=== PATIENT | male | born 1950 | race Caucasian/White ===

== ENCOUNTER 2023-03-13 11:06 | Outpatient (OUT) | payer MEDICARE, SELFPAY ==
--- NOTE | 2023-03-13 11:15 | ECG_ITS ---
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
--- NOTE | 2023-03-13 11:31 | XR_ITS ---
The [address] [address] Patient Name: FLY DORSEY MRN: [id number] date: 1950 Sex: M Assigned Patient Location: [facility] Current Patient Location: [facility] Accession/Order Number: [id number] Exam Date: 03/13/2023 12:10 Report Date: 03/13/2023 12:19 At the request of: CONNOR HARRISON Procedure: XR chest 2V EXAM: XR chest 2V HISTORY: Preop exam COMPARISON: None. TECHNIQUE: PA and lateral views of the chest. FINDINGS: The cardiomediastinal silhouette is normal. No focal consolidation is identified. There is no pneumothorax. No pleural effusion is noted. The osseous structures are intact. XR/XR chest 2V IMPRESSION: No acute cardiopulmonary process. Electronically authenticated by: RHONDA DECKER Date: 03/13/2023 12:19
--- NOTE | 2023-03-13 12:09 | P.GSHP_ITS ---
History of Present Illness History of Present Illness Chief complaint: elevated PSA, BPH Narrative: Patient presents for preadmission testing accompanied by his . The patient is deaf but communicates by sign language. The patient states he had an elevated PSA, Experiences nocturia, had an MRI done in February which demonstrated an area of concern on his prostate and he is now scheduled for biopsy. Patient denies dysuria, hematuria, fever, abdominal pain, or any other complaints. Review of Systems ROS Narrative REVIEW OF SYSTEMS: Negative except as stated in HPI, ten or more systems reviewed. Constitutional: No fever , chills, weakness ENT: No sore throat or epistaxis Cardiovascular: No edema, chest pain, palpitations, or activity intolerance Respiratory: No shortness of breath, cough, or wheezing Musculoskeletal: No joint pain or swelling Gastrointestinal: No abdominal pain, constipation, diarrhea, or vomiting Genitourinary: No dysuria or hematuria Neurological: No numbness, tingling, weakness, or headache Psychiatric: No mood changes PFSH [facility] Medical History (Updated 03/13/23 @ 11:42 by Melina Cameron NP) Edentulism ?K08.109 - Complete loss of teeth, unspecified cause, unspecified class (ICD- 10) Full dentures ?Z97.2 - Presence of dental prosthetic device (complete) (partial) (ICD-10) ?K08.109 - Complete loss of teeth, unspecified cause, unspecified class (ICD- 10) Varicose vein of leg ?I83.90 - Asymptomatic varicose veins of unspecified lower extremity (ICD-10) GERD (gastroesophageal reflux disease) ?K21.9 - Gastro-esophageal reflux disease without esophagitis (ICD-10) Myocardial infarction ?I21.9 - Acute myocardial infarction, unspecified (ICD-10) Prediabetes ?R73.03 - Prediabetes (ICD-10) Vertigo ?R42 - Dizziness and giddiness (ICD-10) Arthritis ?M19.90 - Unspecified osteoarthritis, unspecified site (ICD-10) Back pain ?M54.9 - Dorsalgia, unspecified (ICD-10) Diabetes ?E11.9 - Type 2 diabetes mellitus without complications (ICD-10) Atherosclerosis ?I70.90 - Unspecified atherosclerosis (ICD-10) Hernia ?K46.9 - Unspecified abdominal hernia without obstruction or gangrene (ICD- 10) Sleep apnea in adult ?G47.30 - Sleep apnea, unspecified (ICD-10) Hyperlipidemia ?E78.5 - Hyperlipidemia, unspecified (ICD-10) CAD (coronary artery disease) ?I25.10 - Atherosclerotic heart disease of [place] coronary artery without angina pectoris (ICD-10) BPH (benign prostatic hyperplasia) ?N40.0 - Benign prostatic hyperplasia without lower urinary tract symptoms (ICD-10) Elevated PSA ?R97.20 - Elevated prostate specific antigen [PSA] (ICD-10) Deaf ?H91.90 - Unspecified hearing loss, unspecified ear (ICD-10) Surgical History (Updated 03/13/23 @ 11:42 by Melina Cameron NP) History of tonsillectomy ?Z90.89 - Acquired absence of other organs (ICD-10) History of foot surgery ?Z98.890 - Other specified postprocedural states (ICD-10) H/O colectomy ?Z90.49 - Acquired absence of other specified parts of digestive tract (ICD- 10) History of colonoscopy ?Z98.890 - Other specified postprocedural states (ICD-10) H/O angioplasty ?Z98.62 - Peripheral vascular angioplasty status (ICD-10) Family History (Updated 03/13/23 @ 11:42 by Melina Cameron NP) Other Family history of diabetes mellitus Family history of lung cancer Family history of prostate cancer Social History (Updated 03/13/23 @ 11:33 by Melina Cameron NP) Within the past year, how often did you have a drink containing alcohol: monthly or less Smoking status: Former smoker Non-prescribed substance use: denies use Highest level of school completed/degree received: high school graduate Meds Home Medications and Allergies Home Medications Medication Instructions Recorded Confirmed Type hydrochlorothiazide 25 mg tablet 25 mg PO DAILY 03/13/23 03/13/23 History Allergies Allergy/AdvReac Type Severity Reaction Status Date / Time No Known Drug Allergies Allergy Verified 03/13/23 11:30 Exam Narrative Exam Narrative: Constitutional: Awake, alert, comfortable, well-appearing, nontoxic, interactive, vital signs as charted Head: Normocephalic, atraumatic Neck: Supple, normal appearance, normal range of motion, no meningeal signs, no lymphadenopathy Respiratory: No respiratory distress, breath sounds clear Cardiovascular: Regular rate and rhythm, strong and regular heart tones Abdomen: Nontender, Large hernia, normal bowel sounds, soft, no CVA tenderness Musculoskeletal: Normal gait, no swelling or edema Skin: No rashes or induration, no lesions, only visible skin inspected Neuro: No neurological deficits, normal sensation Psychiatric: Oriented ?3, normal affect Assessment and Plan Assessment and Plan (1) BPH (benign prostatic hyperplasia): (2) Elevated PSA: Plan MRI fusion prostate biopsy scheduled with Dr. Steel 03/18/2023.
[2023-03-13 12:15] LABS: Basophils Absolute Auto 0.1 10^3/uL (0.0-0.1); Eosinophils Absolute Auto 0.2 10^3/uL (0.0-0.7); Eosinophils Percent Auto 2.6 % (0.9-7.0); Hemoglobin 15.6 g/dL (14.0-18.0); Immature Granulocytes Abs Auto 0.02 10^3/uL (0.00-0.03); Immature Granulocytes Pct Auto 0.3 % (0.0-0.5); Lymphocytes Absolute Auto 1.7 10^3/uL (1.2-3.8); Lymphocytes Percent Auto 27.6 % (20.5-60.0); Mean Corpuscular HGB Conc 32.5 g/dL (29.9-35.2); Mean Corpuscular Volume 89.2 fL (80.0-94.0); Mean Platelet Volume 9.7 fL (9.5-13.5); Monocytes Absolute Auto 0.6 10^3/uL (0.3-0.8); Monocytes Percent Auto 9.5 % (1.7-12.0); Neutrophils Absolute Auto 3.6 10^3/uL (1.4-6.5); Platelet Count 218 10^3/uL (150-450); Red Blood Count 5.38 10^6/uL (4.70-6.10); White Blood Count 6.1 10^3/uL (4.0-11.0)
[2023-03-13 12:35] LABS: INR 0.93; Partial Thromboplastin Time 27.6 sec (22.3-36.2); Prothrombin Time 9.9 sec (9.0-11.6)
[2023-03-13 12:49] LABS: Anion Gap 9.7; BUN Creatinine Ratio 22.9; Calcium 9.5 mg/dL (8.5-10.1); Carbon Dioxide 32.1 mmol/L (21.0-32.0); Chloride 102 mmol/L (98-107); Estimated GFR (African America >60 (>=60); Estimated GFR (Non-African Ame >60 (>=60); Glucose 80 mg/dL (74-106); Potassium 3.8 mmol/L (3.5-5.1); Sodium 140 mmol/L (136-145)
== END 2023-03-13 11:07 | disposition home or self-care (01) ==
PROVIDERS: PCP Family Medicine; Visit Provider Urology
DX: Z01.810 Encounter for preprocedural cardiovascular examination (principal); Z01.812 Encounter for preprocedural laboratory examination; Z01.818 Encounter for other preprocedural examination; R97.20 Elevated prostate specific antigen [PSA]; N40.0 Benign prostatic hyperplasia without lower urinary tract symptoms
CPT/HCPCS: 71046; 80048; 85025; 85610; 85730; 93005; G0463

== ENCOUNTER 2023-03-18 12:14 | Day surgery (SDC) | payer MEDICARE, SELFPAY ==
[2023-03-13 12:02] VITALS: BP 129/74; PULSE 77; RESP 20; TEMP 36.3; O2SAT 94; BMI 34.6
[2023-03-18] VITALS (12 sets, daily range): BP systolic 122–152; BP diastolic 77–90; PULSE 92–107; RESP 14–19; TEMP 36.6–36.9; O2SAT 91–99
--- OUTSIDE RECORDS SUMMARY | 2023-03-18 12:23 | XMS_ITS | CCD ---
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 Mary Benjamin Jr Primary Care Fara vailable Adolfo Gomez Referring Unavailable Adolfo Gomez Attending Unavailable Adolfo Gomez Attending Unavailable Dr. Mary Benjamin Jr Primary Care Fara vailable Adolfo Gomez Referring Unavailable DO Elizabeth Benjamin Primary Care Provider [phone] MD Adolfo Gomez Attending Provider [phone] Mary Benjamin DO Primary Care Provider ADOLFO GOMEZ Attending Unavailable MARY BENJAMIN Primary Care Unavailable Joni BENJAMIN Primary Care Physician MD Kely Steel Attending Provider [phone] MD Samir Dunn Attending Provider Samir Dunn Admitting Unavailable Samir Dunn Attending Unavailable Elizabeth Benjamin Primary Care Unavailable Kely Steel Attending Unavailable Elizabeth Benjamin Primary Care Unavailable Kely Steel Admitting Unavailable Adolfo Gomez Admitting Unavailable Adolfo Gomez Attending Unavailable Elizabeth Benjamin Primary Care Unavailable Elizabeth Benjamin Primary Care Unavailable Kely Steel Admitting Unavailable Kely Steel Attending Unavailable Mary Benjamin DO Unavailable Mary Benjamin DO Primary Care Provider Kely Steel. Attending Unavailable Kely Steel. Attending Unavailable Joni BENJAMIN Referring Unavailable Unavailable Unavailable Unavailable Allergies Allergy Classification Reported Allergen(s) Allergy Type Date of Onset Reaction(s) Facility (5 sources) Hmg-Coa Reductase Inhibitors (Statins); Translations: [Statins] Allergy to drug (finding) Other -[facility] y 250 DO Work Phone: Medications Current Medications Medication Drug Class(es) Dates Sig (Normalized) Sig (Original) Tylenol (17 sources) Start: 01-16-2023 Tylenol Oral, Refills(s) 0 Start Date: 01/16/23 Status: Ordered Start: 04-09-2018 Acetaminophen Active 1 TAB Oral As Directed April 09, 2018 3:05pm Start: 04-09-2018 Acetaminophen (Tylenol Extra Strength) 500 mg Tablet Active 1 TAB PO As Directed April 09, 2018 12:00am take 1 capsule by mo uth every four hours as needed acetaminophen (Tylenol) 500 mg capsule Take 1 capsule (500 mg) by mouth every 4 hours if needed. 0 Active Tylenol prn Acti ve Aspir-81 (3 sources) Aspir-81 Active aspirin 81 mg oral tablet (14 sources) Platelet Aggregation Inhibitor, Nonsteroidal Anti-inflammatory Drug Start: 01-16-2023 take 1 mg by mouth once daily Adult Aspirin 81 mg oral tablet, chewable mg tab(s), Chewed, Daily, Refills(s) 0 Start Date: 01/16/23 Status: Ordered Start: 11-07-2016 take 81 mg by mouth once daily Aspirin Active 81 MG PO Daily 0 November 06, 2016 11:00pm take 1 tablet by nilay th once daily aspirin 81 mg EC tablet Take 1 tablet (81 mg) by mouth once daily. 0 Active atorvastatin 40 mg oral tablet (5 sources) HMG-CoA Reductase Inhibitor Start: 11-07-2016 take 80 mg by mouth once daily in the evening Atorvastatin Active 80 MG PO Every evening November 06, 2016 11:00pm Repatha (8 sources) PCSK9 Inhibitor Start: 01-16-2023 inject 1 mg by subcutaneous injection every other week Repatha mg, SubCutaneous, q2wk, Refills(s) 0 Start Date: 01/16/23 Status: Ordered Start: 01-25-2021 inject 1 mL by subcu taneous injection once evolocumab (Repatha SureClick) 140 mg/mL injection Inject 1 mL (140 mg) under the skin every 14 (fourteen) days. 0 01/25/2021 Active Start: 01-25-2021 Repatha SureCl ick 140 MG/ML Subcutaneous Solution Auto-injector one injection every 2 weeks. Quantity: 6 Refills: 3 Ordered: 15-Jan-2022 Adolfo Gomez MD Start : 25-Jan-2021 Active ezetimibe 10 mg oral tablet (18 sources) Dietary Cholesterol Absorption Inhibitor Start: 04-09-2018 take 1 tablet by mouth once daily at bedtime Ezetimibe (Zetia) 10 mg tablet Active 10 MG PO Daily at bedtime April 09, 2018 12:00am Zetia Active hydroCHLOROthiazide 25 mg oral tablet (13 sources) Thiazide Diuretic Start: 01-28-2023 take 1 tablet by mouth once daily in the morning hydroCHLOROthiazide (HYDRODiuril) 25 MG tablet Indications: Hypertension, unspecified type (CMS/HCC) TAKE 1 TABLET BY MOUTH EVERY DAY IN THE MORNING 90 tablet 4 01/28/2023 Active Start: 01-16-2023 take 1 mg by mouth o nce daily hydrochlorothiazide 25 mg Tab mg tab(s), Oral, Daily, Refills(s) 0 Start Date: 01/16/23 Status: Ordered take 1 tablet by nilay th once daily hydroCHLOROthiazide (HYDRODiuril) 25 mg tablet Take 1 tablet (25 mg) by mouth once daily. 0 Active hydroCHLOROthiaz rodrick Active lansoprazole 30 mg disintegrating oral tablet (17 sources) Proton Pump Inhibitor Start: 01-16-2023 take 1 mg by mouth once daily lansoprazole 30 mg Dis Tab mg tab(s), Oral, Daily, Refills(s) 0 Start Date: 01/16/23 Status: Ordered Start: 11-06-2016 take 30 mg by mouth once daily in the morning Lansoprazole Active 30 MG PO Every morning November 05, 2016 11:00pm meclizine hydrochloride 25 mg chewable tablet (5 sources) Antiemetic Start: 01-16-2023 take 1 mg by mouth once daily meclizine 25 mg oral tablet, chewable mg tab(s), Chewed, Daily, Refills(s) 0 Start Date: 01/16/23 Status: Ordered Start: 12-11-2022 take 1 tablet by nilay th four times daily as needed for dizziness meclizine (Antivert) 25 MG tablet Indications: Dizziness Take 1 tablet (25 mg) by mouth 4 (four) times a day as needed for dizziness. 25 tablet 1 12/11/2022 Active Start: 04-22-2022 take 1 tablet by nilay th four times daily as needed Meclizine HCl - 25 MG Oral Tablet TAKE 1 TABLET BY MOUTH 4 TIMES A DAY NEEDED Quantity: 25 Refills: 0 Ordered: 22-Apr-2022 DO Start : 22-Apr-2022 Active take 1 tablet by nilay th three times daily as needed for dizziness meclizine (Antivert) 25 mg tablet Take 1 tablet (25 mg) by mouth 3 times a day as needed for dizziness. 0 Active 24 hr metFORMIN hydrochloride 500 mg extended release oral tablet (8 sources) Biguanide Start: 01-28-2023 take 1 tablet by mouth once daily at dinner metFORMIN XR (Glucophage-XR) 500 MG 24 hr tablet Indications: Prediabetes TAKE 1 TABLET BY MOUTH EVERY DAY WITH EVENING MEAL 90 tablet 1 01/28/2023 Active Start: 01-16-2023 take 1 mg by mouth once daily metformin 500 mg ER Tab mg tab(s), Oral, Daily, Refills(s) 0 Start Date: 01/16/23 Status: Ordered Start: 04-10-2022 take 1 tablet by nilay th once daily at dinner metFORMIN HCl ER 500 MG Oral Tablet Extended Release 24 Hour TAKE 1 TABLET BY MOUTH EVERY DAY WITH EVENING MEAL Quantity: 90 Refills: 0 Ordered: 10-Apr-2022 DO Start : 10-Apr-2022 Active take 1 tablet by nilay th once daily metFORMIN (Glucophage) 500 mg tablet Take 1 tablet (500 mg) by mouth once daily. 0 Active 24 hr metoprolol succinate 25 mg extended release oral tablet (9 sources) beta-Adrenergic Pinky Start: 01-16-2023 take 1 mg by mouth once daily metoprolol 25 mg ER Tab mg tab(s), Oral, Daily, Refills(s) 0 Start Date: 01/16/23 Status: Ordered Start: 11-07-2016 take 25 mg by mouth twice annamarie y Metoprolol Tartrate Active 25 MG PO Twice daily 60 30 November 06, 2016 11:00pm Metoprolol Tartr ate Not-Taking/PRN Metoprolol Tartr ate Not-Taking nitroglycerin 0.4 mg/actuat mucosal spray (6 sources) Nitrate Vasodilator Start: 01-16-2023 nitroglyce rin 0.4 mg SubL [place] mg spray(s), SubLingual, q5min, Refills(s) 0 Start Date: 01/16/23 Status: Ordered Start: 11-07-2016 Nitroglycerin Active 0.4 MG SUBLINGUAL Q5M 25 November 06, 2016 11:00pm [place] 3 1000 MG (3 sources) take 1 capsule by mouth once daily [place] 3 1000 MG 1 capsule Orally Once a day Active omega-3 acid ethyl esters (prison) 1000 mg oral capsule (5 sources) Start: 11-06-2016 take 1 capsule by mouth twice daily [place]-3 Acid Ethyl Esters Active 1 CAP PO Twice daily November 05, 2016 11:00pm tamsulosin hydrochloride 0.4 mg oral capsule (1 source) alpha-Adrenergic Pinky Start: 01-16-2023 take 1 capsule by mouth once daily tamsulosin 0.4 mg Cap 0.4 mg = 1 cap(s), Oral, Daily, # 30 cap(s), Refills(s) 11, Pharmacy: [facility]/pharmacy #[id number], 185, cm, 01/16/23 8:52:00 EST, Height/Length Dosing, 117.5, kg, 01/16/23 8:52:00 EST, Weight Dosing Start Date: 01/16/23 Status: Ordered ticagrelor 60 mg oral tablet (9 sources) Start: 04-09-2018 take 60 mg by mouth twice daily Ticagrelor Active 60 MG PO Twice daily April 09, 2018 12:00am Start: 11-07-2016 End: 04-09-2018 take 1 tablet by mouth twice daily Ticagrelor (Brilinta) 90 mg Tablet Discontinued 90 MG PO Twice daily 180 90 November 06, 2016 11:00pm April 09, 2018 3:04pm Completed/Discontinued Medications Medication Drug Class(es) Dates Sig (Normalized) Sig (Original) cephalexin 500 mg oral capsule (4 sources) Cephalosporin Antibacterial Start: 06-15-2018 End: 06-29-2018 take 1 capsule by mouth twice daily Cephalexin (Keflex) 500 mg capsule Discontinued 500 MG PO Twice daily June 14, 2018 11:00pm June 29, 2018 1:37pm ciprofloxacin 500 mg oral tablet (4 sources) Quinolone Antimicrobial Start: 05-31-2018 End: 06-12-2018 take 1 tablet by mouth twice daily Ciprofloxacin Hcl (Cipro) 500 mg tablet Discontinued 500 MG PO Twice daily 22 08May 30, 2018 11:00pm June 12, 2018 1:05pm docosahexaenoic acid 120 mg / eicosapentaenoic acid 180 mg oral capsule (2 sources) take 1 capsule by mouth twice daily [place] 3 1000 MG Oral Capsule Take 1 capsule twice daily Quantity: 0 Refills: 0 Ordered: 25-Dec-2020 DO Active ibuprofen 800 mg oral tablet (7 sources) Nonsteroidal Anti-inflammatory Drug Start: 11-07-2016 End: 11-07-2016 take 800 mg by mouth twice daily Ibuprofen Discontinued 800 MG PO Twice daily November 06, 2016 11:00pm November 07, 2016 2:11pm take 1 tablet by mouth every six hours Ibuprofen 200 MG 1 tablet as needed Orally every 6 hrs Not-Taking/PRN suprep bowel prep kit 17.5-3.13-1.6 gm/177ml solution (3 sources) Start: 03-31-2018 Suprep Bowel P rep Kit 17.5-3.13-1.6 GM/177ML 177ml at 4pm, 177ml at 11pm the day prior to colonoscopy Orally bid for 1 days Mar, Not-Taking/PRN Start: 03-31-2018 Suprep Bowel P rep Kit 17.5-3.13-1.6 GM/177ML 177ml at 4pm, 177ml at 11pm the day prior to colonoscopy Orally bid for 1 days Mar, Not-Taking naproxen 500 mg oral tablet (3 sources) Nonsteroidal Anti-inflammatory Drug take 1 tablet by mouth every twelve hours Naproxen 500 MG 1 tablet as needed Orally every 12 hrs Not-Taking/PRN niacin 500 mg oral tablet (3 sources) Nicotinic Acid take 1 tablet by mouth every twenty-four hours Niacin 500 MG 1 tablet Orally Once a day Not-Taking/PRN traMADol hydrochloride 50 mg oral tablet (9 sources) Opioid Agonist Start: 019 End: 020 take 0.5-1 tablets by mouth every six hours as needed for pain Tramadol (Ultram) 50 mg tablet Discontinued 50 MG PO Q6H 45 7 May 27, 2018 11:00pm February 08, 2020 9:20am 1/2 - 1 tab po q 6 hours prn pain Problems Active Problems Problem Classification Problem Date Documented Date Episodic/Chronic Acute myocardial infarction (5 sources) Myocardial infarction; Translations: [Non-ST elevation (NSTEMI) myocardial infarction] 11-07-2016 Chronic Allergic reactions (8 sources) Inflammatory dermatosis; Translations: [Dermatitis, unspecified] 02-22-2020 Episodic Complications of surgical procedures or medical care (11 sources) Postoperative wound infection; Translations: [Other complications of procedures, not elsewhere classified, initial encounter] 06-12-2018 Episodic Coronary atherosclerosis and other heart disease (11 sources) Coronary atherosclerosis; Translations: [Coronary atherosclerosis of andreafski coronary artery] Onset: 12-23-2022 12-24-2022 Chronic Coronary atherosclerosis and other heart disease (11 sources) Past history of procedure; Translations: [Percutaneous transluminal coronary angioplasty status] Onset: 12-23-2022 12-24-2022 Episodic Comment on above: LAD 2018; Diabetes mellitus without complication (4 sources) Type 2 diabetes mellitus without complication; Translations: [Type 2 diabetes mellitus without complications] Onset: 12-24-2022 12-24-2022 Chronic Diseases of white blood cells (5 sources) Leukocytosis; Translations: [Elevated white blood cell count, unspecified] 05-31-2018 Chronic Disorders of lipid metabolism (14 sources) Hyperlipidemia; Translations: [Other and unspecified hyperlipidemia] Onset: 12-17-2022 12-24-2022 Chronic Essential hypertension (6 sources) Hypertensive disorder; Translations: [Essential (primary) hypertension] 11-07-2016 Chronic Fever of unknown origin (5 sources) Fever; Translations: [Fever, unspecified] 05-31-2018 Episodic Hyperplasia of prostate (2 sources) Benign prostatic hypertrophy without outflow obstruction; Translations: [Benign prostatic hyperplasia without lower urinary tract symptoms] Onset: 01-16-2023 Chronic Neoplasms of unspecified nature or uncertain behavior (10 sources) 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; Translations: [Neoplasm of uncertain behavior of colon] 05-25-2018 Episodic Nonspecific chest pain (5 sources) Chest pain; Translations: [Chest pain, unspecified] 11-06-2016 Episodic Osteoarthritis (1 source) Arthritis 01-09-2023 Chronic Other aftercare (1 source) Long-term current use of aspirin; Translations: [assisted (current) use of aspirin] Onset: 01-16-2023 Episodic Other and ill-defined heart disease (1 source) Heart disease 01-09-2023 Chronic Other and unspecified benign neoplasm (1 source) History of polyp of colon 01-09-2023 Episodic Other ear and sense organ disorders (13 sources) Hearing loss; Translations: [Unspecified hearing loss] Onset: 12-23-2022 07-17-2020 Chronic Other infections; including parasitic (1 source) H/O: chickenpox 01-09-2023 Episodic Other infections; including parasitic (1 source) H/O: measles 01-09-2023 Episodic Other liver diseases (8 sources) Elevated liver enzymes level; Translations: [Other nonspecific abnormal serum enzyme levels] Onset: 12-23-2022 12-23-2022 Episodic Other lower respiratory disease (2 sources) Snoring; Translations: [Other respiratory abnormalities] Episodic Other non-traumatic joint disorders (3 sources) Arthralgia of the pelvic region and thigh; Translations: [Pain in left hip] Episodic Other nutritional; endocrine; and metabolic disorders (3 sources) Obesity, unspecified; Translations: [Other obesity due to excess calories] Onset: 12-24-2022 Chronic Other nutritional; endocrine; and metabolic disorders (13 sources) Obesity; Translations: [Obesity, unspecified] Onset: 12-24-2022 06-29-2018 Chronic Other nutritional; endocrine; and metabolic disorders (5 sources) Body mass index 40+ - severely obese; Translations: [Morbid obesity] Chronic Other nutritional; endocrine; and metabolic disorders (2 sources) Body mass index (BMI) 34.0-34.9, adult; Translations: [Body mass index (BMI) 34.0-34.9, adult] Onset: 12-24-2022 Chronic Other screening for suspected conditions (not mental disorders or infectious disease) (8 sources) Stool DNA-based colorectal cancer screening positive; Translations: [Other fecal abnormalities] Onset: 01-15-2023 04-13-2018 Episodic Residual codes; unclassified (18 sources) Obstructive sleep apnea syndrome; Translations: [Obstructive sleep apnea (adult)(pediatric)] Onset: 12-23-2022 12-24-2022 Chronic Residual codes; unclassified (5 sources) Obstructive sleep apnea (adult) (pediatric); Translations: [Obstructive sleep apnea (adult) (pediatric)] Onset: 01-01-2021 Resolved: 01-01-2021 Chronic Residual codes; unclassified (3 sources) Idiopathic sleep related nonobstructive alveolar hypoventilation Onset: 01-01-2021 Resolved: 01-01-2021 Chronic Residual codes; unclassified (1 source) Obstructive sleep apnea (adult)(pediatric); Translations: [Obstructive sleep apnea (adult) (pediatric)] Onset: 02-25-2023 Chronic Residual codes; unclassified (5 sources) History of partial resection of colon; Translations: [Acquired absence of other specified parts of digestive tract] 06-29-2018 Episodic Residual codes; unclassified (1 source) Family history of cancer; Translations: [Family history of malignant neoplasm of prostate] Onset: 01-16-2023 Episodic Residual codes; unclassified (2 sources) Family history of prostate cancer 01-16-2023 Episodic Screening and history of mental health and substance abuse codes (9 sources) Ex-smoker; Translations: [Personal history of tobacco use] Onset: 01-16-2023 Episodic Comment on above: quit 2004, 2 ppd; Skin and subcutaneous tissue infections (5 sources) Abscess of abdominal wall; Translations: [Cutaneous abscess of abdominal wall] 07-09-2018 Episodic Spondylosis; intervertebral disc disorders; other back problems (6 sources) Lumbar spondylosis; Translations: [Spondylosis without myelopathy or radiculopathy, lumbar region] Chronic Unclassified (1 source) Long-term current use of aspirin 01-16-2023 Past or Other Problems Problem Classification Problem Date Documented Da te Episodic/Chronic Immunizations and screening for infectious disease (5 sources) Patient encounter status; Translations: [Other specified vaccination] Resolved: 12-17-2021 Episodic Other liver diseases (5 sources) Liver enzymes abnormal; Translations: [Other nonspecific abnormal serum enzyme levels] Resolved: 12-17-2021 Episodic Residual codes; unclassified (7 sources) Hypersomnia; Translations: [Hypersomnia, unspecified] Resolved: 12-17-2021 Chronic Residual codes; unclassified (7 sources) Bilateral lower limb edema; Translations: [Edema] Resolved: 12-17-2021 Episodic Residual codes; unclassified (5 sources) H/O: respiratory disease; Translations: [Other specified personal history presenting hazards to health] Resolved: 12-17-2021 Episodic Unclassified (1 source) Onset: 12-24-2022 12-24-2022 Results Test Name Value Interpretation Reference Range Facility [facility] 03-17-2023 Lab Reports [id number] .00TIFF Normal [facility] RAD - MISCon 03-17-2023 RAD - MISC [id number] .00TIFF Normal [facility] ALL CBC WITH AUTO DIFFon BASOPHILS ABSOLUTE AUTO 0.1 [facility] Basophils/100 WBC (Bld) 1.0 % 0.2 - 2.0 % [facility] Eosinophils/100 WBC (Bld) 2.6 % 0.9 - 7.0 % [facility] Erythrocyte distribution width (RBC) [Ratio] 13.0 % 11.0 - 15.0 % [facility] Hematocrit (Bld) [Volume fraction] 48.0 % 42.0 - 54.0 % [facility] Hemoglobin (Bld) [Mass/Vol] 15.6 g/dL 14.0 - 18.0 g/dL [facility] IMMATURE GRANULOCYTES ABS AUTO 0.02 [facility] Immature granulocytes/100 WBC (Bld) 0.3 % 0.0 - 0.5 % [facility] LYMPHOCYTES ABSOLUTE AUTO 1.7 [facility] Lymphocytes/100 WBC (Bld) 27.6 % 20.5 - 60.0 % [facility] MCH (RBC) [Entitic mass] 29.0 pg 25.9 - 34.0 pg [facility] MCHC (RBC) [Mass/Vol] 32.5 g/dL 29.9 - 35.2 g/dL [facility] MCV (RBC) [Entitic vol] 89.2 fL 80.0 - 94.0 fL [facility] MONOCYTES ABSOLUTE AUTO 0.6 [facility] Monocytes/100 WBC (Bld) 9.5 % 1.7 - 12.0 % [facility] NEUTROPHILS ABSOLUTE AUTO 3.6 [facility] Neutrophils/100 WBC (Bld) 59.0 % 43.0 - 75.0 % [facility] Platelet mean volume (Bld) [Entitic vol] 9.7 fL 9.5 - 13.5 fL [facility] TBH EO # 0.2 [facility] TB PLT 218 [facility] RBC 5.38 [facility] WBC 6.1 [facility] Consent for Procedure/Surger yon 03-13-2023 Consent for Procedure/Surgery [id number] .00TIFF Normal [facility] RAD - MRI Reporton 4 RAD - MRI Report [id number] .00TIFF Normal [facility] ISTAT XRay CREon 03-05-2023 Creatinine [Mass/Vol] 0.9 mg/dL Normal 0.6-1.3 [facility] Comment on above: Result Comment: ER/E SD physician is notified/shown all ISTAT results. Critical values may be confirmed by laboratory testing if deemed necessary by ER attending doctor. Performed By: #### I SCRE #### [address] ISTAT GFR > 60.0 [facility] Comment on above: Result Comment: PERF ORMED BY: [place] [address] PATHOLOGIST MOTORIZED SQU[employer] SERGEANT MELQUIADES CAUSEY M.D. Performed By: #### I SCRE #### [facility] [address] [place] [address] MR prostate wo/w conon 03-05 MR prostate wo/w con [facility] [address] [place] [address] MRI Report Signed Patient: Mynor Dorsey MR#: [id number] : 1950 Acct:[id number] Age/Sex: 72 / M ADM Date: 03/05/23 Loc: Room: Type: [facility] Attending Dr: Kely Steel MD Copies to: Kely Steel MD Ordering Provider: Kely Steel MD Date of Service: 03/05/23 MR/MR prostate wo/w con: R97.20 EXAMINATION: MR prostate wo/w con HISTORY: Elevated PSA. COMPARISON: NONE TECHNIQUE: Multiparametric imaging of the prostate gland was performed with IV contrast. FINDINGS: Prostate Dimensions: 5.9 x 4.0 x 4.8 cm Prostate Volume: 59 mL Peripheral Zone: Heterogenous inT2 signal suggestive of prior prostatitis. A focal area of T2 hypointensity is seen involving the posterior aspect of the left peripheral zone measuring 7 x 4 mm with associated restricted diffusion and low ADC value. This is seen at the level of the mid gland. No gross extracapsular extension is seen. Please see series 4 image 14, series 650 image 15 and series 600 image 15. Central/Transitional Zone: BPH changes. Seminal Vesicles: Unremarkable Neurovascular bundles: Unremarkable. Lymphadenopathy: No evidence of lymphadenopathy. Bladder: Trabeculated without focal lesion. Bowel: Diverticulosis. Peritoneal Cavity: No free fluid. Bones: No suspicious bony lesion. MR/MR prostate wo/w con IMPRESSION: 1. A focal area of T2 hypointensity is seen involving the posterior aspect of the left peripheral zone measuring 7 x 4 mm with associated restricted diffusion and low ADC value. This is seen at the level of the mid gland. No gross extracapsular extension is seen. Please see series 4 image 14, series 650 image 15 and series 600 image 15. PI-RADS 4. Targeting of this area on biopsy is recommended. Impression dictated by: Cameron Anand Jr., D.O.03/05/2023 2:19 PM Dictation Location: [facility]-15 Transcribed By: [facility] 03/05/23 1419 Dictated By: Caemron Anand Jr, DO 03/05/23 1354 Signed By: 03/05/23 1419 [facility] 12-17-2023 Lab Reports [id number] .00TIFF Normal [facility] PSA Diagnostic (Total Free)o n 01-21-2023 Prostate Spec Ag, Free 0.860 ng/mL Normal F [facility] Comment on above: Performed By: #### P SATF #### [facility] [address] PSA Total (Not a Screen) 4.140 ng/mL High 0.000-4.000 [facility] Comment on above: Performed By: #### P SATF #### [facility] [address] PSA,FREE% 20.7 % Normal [facility] Comment on above: Result Comment: Base d on the work of Kandice et al.LIYA. 279(19):1542:47.1998 the percent free PSA may be used to determine the relative risk of prostate cancer in individual men.The percent probability of prostate cancer by patient age for men with non-suspicious VAUGHN results and total PSa between 4 and 10 ng/ml is as follows: % Free PSA 50 - 64 yrs. 65 - 75 yrs. 0 - 10 56% 55% 10 - 15 24% 35% 15 - 20 17% 23% 20 - 25 10% 20% >25 5% 9% PERFORMED BY: [place] [address] PATHOLOGIST [employer]OR[employer]ED [employer] MELQUIADES CAUSEY M.D. Performed By: #### P SATF #### [address] Prostate Specific Ag Free [M ass/volume] in Serum or PlasmaOrdered By: Kely Steel on 01-21-2023 Free PSA [Mass/Vol] 0.860 ng/mL [facility] Prostate specific Ag [Mass/v olume] in Serum or PlasmaOrdered By: Kely Steel on 01-21-2023 Prostate specific Ag [Mass/Vol] 4.140 ng/mL 0.000-4.000 [facility] Serum or plasma free prostat e specific antigen (PSA)/total PSA ratioOrdered By: Kely Steel on 01-21-2023 Free PSA/Total PSA [Mass fraction] 20.7 % [facility] Comment on above: Based on the work of Kandice et al.LIYA. 27919):1542:47.1998 the percent free PSA may be used to determine the relative risk of prostate cancer in individual men.The percent probability of prostate cancer by patient age for men with non-suspicious VAUGHN results and total PSa between 4 and 10 ng/ml is as follows:% Free PSA 50 - 64 yrs. 65 - 75 yrs. 0 - 10 56% 55% 10 - 15 24% 35% 15 - 20 17% 23% 20 - 25 10% 20% >25 5% 9% Formson 01-19-2023 Forms [id number]# 1.00TIFF Normal [facility] Physician Referralon 023 Physician Referral [id number]# 1.00TIFF Normal [facility] Screenson 01-19-2023 Screens [id number]# 1.00TIFF Normal [facility] Screens [id number]#1 .00TIFF Normal [facility] Ambulatory Visit Summaryon 1 03-19-2022 Ambulatory Visit Summary MYNOR DORSEY :1950 Visit Date:01/16/2023 Ambulatory Visit Instructions Your Diagnosis Elevated PSA BPH (benign prostatic hyperplasia) Family history of prostate cancer in father Former smoker Aspirin long-term use Tests Performed Urnls Dip Stick Auto w/o Microscopy POC 99533 Your Care Team Attending Physician - Damián VILLAGRAN, Kely Figueroa Primary Care Physician - Joni BENJAMIN DO Referring Physician - Joni BENJAMIN DO Procedures Performed Colonoscopy (2020), Right hemicolectomy (2018), Placement of stent in cardiac conduit (2016), Colonoscopy (2004). Discharge Vitals Temperature (Temporal Artery) 36.1 ?C Blood Pressure 127/89 Height 73 in Height 185 cm Weight 69.5 kg Weight 152.9 lb BMI 34.33 What to do next You Need to Schedule the Following Appointments Follow Up with Damián VILLAGRAN, ABBY Shelley, URO When: Comments: Pending PSA F&T Where: Test Results Urnls Dip Stick Auto w/o Microscopy POC 26794 (01/16/2023) Bilirubin Urine Dipstick - Negative Blood Urine Dipstick - Negative Glucose Urine Dipstick - Negative Ketones Urine Dipstick - Negative Leukocytes Urine Dipstick - Negative Nitrite Urine Dipstick - Negative Protein Urine Dipstick - Negative Specific [place] Urine Dipstick - 1.020 Urine Appearance Urine Dipstick - Clear Urine Color Urine Dipstick - Light yellow Urobilinogen Urine Dipstick - Normal 0.2-1 EU/dl pH Urine Dipstick - 5.5 Allergies No Known Allergies Problems Ongoing - Any problem that you are currently receiving treatment for. Arthritis Aspirin long-term use BPH (benign prostatic hyperplasia) Deaf Elevated PSA Family history of prostate cancer Family history of prostate cancer in father Former smoker Heart disease History of chicken pox History of colonic polyps History of measles Hypertension Obesity Patient Survey You may receive a survey via text or e-mail asking about your office visit. Please share your experience with us by completing your survey. We appreciate your feedback and thank you for choosing us for your care. Education Materials Prostate Cancer Screening Prostate cancer screening is testing that is done to check for the presence of prostate cancer in men. The prostate gland is a walnut-sized gland that is located below the bladder and in front of the rectum in males. The function of the prostate is to add fluid to semen during ejaculation. Prostate cancer is one of the most common types of cancer in men. Who should have prostate cancer screening? Screening recommendations vary based on age and other risk factors, as well as between the professional organizations who make the recommendations. In general, screening is recommended if: ? You are age 50 to 70 and have an average risk for prostate cancer. You should talk with your health care provider about your need for screening and how often screening should be done. Because most prostate cancers are slow growing and will not cause , screening in this age group is generally reserved for men who have a 10- to 15-year life expectancy. ? You are younger than age 50, and you have these risk factors: ? Having a father, brother, or uncle who has been diagnosed with prostate cancer. The risk is higher if your family member's cancer occurred at an early age or if you have multiple family members with prostate cancer at an early age. ? Being a male who is Black or is of [place] or sub-Saharan descent. In general, screening is not recommended if: ? You are younger than age 40. ? You are between the ages of 40 and 49 and you have no risk factors. ? You are 70 years of age or older. At this age, the risks that screening can cause are greater than the benefits that it may provide. If you are at high risk for prostate cancer, your health care provider may recommend that you have screenings more often or that you start screening at a younger age. How is screening for prostate cancer done? The recommended prostate cancer screening test is a blood test called the prostate-specific antigen (PSA) test. PSA is a protein that is made in the prostate. As you age, your prostate naturally produces more PSA. Abnormally high PSA levels may be caused by: ? Prostate cancer. ? An enlarged prostate that is not caused by cancer (benign prostatic hyperplasia, or BPH). This condition is very common in older men. ? A prostate gland infection (prostatitis) or urinary tract infection. ? Certain medicines such as male hormones (like testosterone) or other medicines that raise testosterone levels. A rectal exam may be done as part of prostate cancer screening to help provide information about the size of your prostate gland. When a rectal exam is performed, it should be done after the PSA level is drawn to avoid any effect on the results. Depending on the PSA results, you may need (more content not included)... Normal [facility] Patient Educationon 01-17-20 Patient Education Oncology Prostate Cancer Screening Prostate cancer screening is testing that is done to check for the presence of prostate cancer in men. The prostate gland is a walnut-sized gland that is located below the bladder and in front of the rectum in males. The function of the prostate is to add fluid to semen during ejaculation. Prostate cancer is one of the most common types of cancer in men. Who should have prostate cancer screening? Screening recommendations vary based on age and other risk factors, as well as between the professional organizations who make the recommendations. In general, screening is recommended if: ? You are age 50 to 70 and have an average risk for prostate cancer. You should talk with your health care provider about your need for screening and how often screening should be done. Because most prostate cancers are slow growing and will not cause , screening in this age group is generally reserved for men who have a 10- to 15-year life expectancy. ? You are younger than age 50, and you have these risk factors: ? Having a father, brother, or uncle who has been diagnosed with prostate cancer. The risk is higher if your family member's cancer occurred at an early age or if you have multiple family members with prostate cancer at an early age. ? Being a male who is Black or is of [place] or sub-Saharan descent. In general, screening is not recommended if: ? You are younger than age 40. ? You are between the ages of 40 and 49 and you have no risk factors. ? You are 70 years of age or older. At this age, the risks that screening can cause are greater than the benefits that it may provide. If you are at high risk for prostate cancer, your health care provider may recommend that you have screenings more often or that you start screening at a younger age. How is screening for prostate cancer done? The recommended prostate cancer screening test is a blood test called the prostate-specific antigen (PSA) test. PSA is a protein that is made in the prostate. As you age, your prostate naturally produces more PSA. Abnormally high PSA levels may be caused by: ? Prostate cancer. ? An enlarged prostate that is not caused by cancer (benign prostatic hyperplasia, or BPH). This condition is very common in older men. ? A prostate gland infection (prostatitis) or urinary tract infection. ? Certain medicines such as male hormones (like testosterone) or other medicines that raise testosterone levels. A rectal exam may be done as part of prostate cancer screening to help provide information about the size of your prostate gland. When a rectal exam is performed, it should be done after the PSA level is drawn to avoid any effect on the results. Depending on the PSA results, you may need more tests, such as: ? A physical exam to check the size of your prostate gland, if not done as part of screening. ? Blood and imaging tests. ? A procedure to remove tissue samples from your prostate gland for testing (biopsy). This is the only way to know for certain if you have prostate cancer. What are the benefits of prostate cancer screening? ? Screening can help to identify cancer at an early stage, before symptoms start and when the cancer can be treated more easily. ? There is a small chance that screening may lower your risk of dying from prostate cancer. The chance is small because prostate cancer is a slow-growing cancer, and most men with prostate cancer from a different cause. What are the risks of prostate cancer screening? The main risk of prostate cancer screening is diagnosing and treating prostate cancer that would never have caused any symptoms or problems. This is called overdiagnosisand overtreatment. PSA screening cannot tell you if your PSA is high due to cancer or a different cause. A prostate biopsy is the only procedure to diagnose prostate cancer. Even the results of a biopsy may not tell you if your cancer needs to be treated. Slow-growing prostate cancer may not need any treatment other than monitoring, so diagnosing and treating it may cause unnecessary stress or other side effects. Questions to ask your health care provider ? When should I start prostate cancer screening? ? What is my risk for prostate cancer? ? How often do I need screening? ? What type of screening tests do I need? ? How do I get my test results? ? What do my results mean? ? Do I need treatment? Where to find more information ? The [place] [employer]: www.cancer.org ? [place] [employer]: www.auanet.org Contact a health care provider if: ? You have difficulty urinating. ? You have pain when you urinate or ejaculate. ? You have blood in your urine or semen. ? You have pain in your back or in the area of your prostate. Summary ? Prostate cancer is a common type of cancer in men. The prostate gland is located below the bladder and in front of the rectum. This gland adds flu (more content not included)... Normal [facility] Alanine Aminotransferaseon 1 02-16-2022 ALT [Catalytic activity/Vol] 27 U/L Normal [facility] Comment on above: Performed By: #### C BC, BMP, LIPID, AST, ALT #### [address] Alanine aminotransferase [En zymatic activity/volume] in Serum or PlasmaOrdered By: Adolfo Gomez on 12-17-2022 ALT [Catalytic activity/Vol] 27 U/L [facility] Aspartate Amino Transferaseo n 12-17-2022 AST [Catalytic activity/Vol] 23 U/L Normal 39 [facility] Comment on above: Performed By: #### C BC, BMP, LIPID, AST, ALT #### [facility] [address] Aspartate aminotransferase [ Enzymatic activity/volume] in Serum or PlasmaOrdered By: Adolfo Gomez on 12-17-2022 AST [Catalytic activity/Vol] 23 U/L [facility] Basic Metabolic Panelon Anion gap [Moles/Vol] 11.9 mmol/L Normal 6.0-15.0 [facility] Comment on above: Performed By: #### C BC, BMP, LIPID, AST, ALT #### [address] Calcium [Mass/Vol] 10.4 mg/dL High 8.6-10.3 [facility] Comment on above: Performed By: #### C BC, BMP, LIPID, AST, ALT #### [facility] [address] Chloride [Moles/Vol] 101 mmol/L Normal 98-107 [facility] Comment on above: Performed By: #### C BC, BMP, LIPID, AST, ALT #### [address] CO2 [Moles/Vol] 31.3 mmol/L High 21.0-31.0 [facility] Comment on above: Performed By: #### C BC, BMP, LIPID, AST, ALT #### [facility] [address] Creatinine [Mass/Vol] 0.75 mg/dL Normal 0.70-1.30 [facility] Comment on above: Performed By: #### C BC, BMP, LIPID, AST, ALT #### [facility] [address] [place] [address] [place] GFR/1.73 sq M.predicted MDRD (S/P/Bld) [Vol rate/Area] mL/min/{1.73_m2} Normal [facility] Comment on above: Performed By: #### C BC, BMP, LIPID, AST, ALT #### [facility] [address] Glucose [Mass/Vol] 97 mg/dL Normal 70-100 [facility] Comment on above: Result Comment: [place] Glucose Reference Range is dependent on time and content of last meal. Glucose of more than 200 mg/dL in a nonstressed, ambulatory subject supports the diagnosis of Diabetes Mellitus. ADA recommended reference range Performed By: #### C BC, BMP, LIPID, AST, ALT #### [facility] [address] Potassium [Moles/Vol] 4.2 mmol/L Normal 3.5-5.1 [facility] Comment on above: Performed By: #### C BC, BMP, LIPID, AST, ALT #### [facility] [address] Sodium [Moles/Vol] 140 mmol/L Normal 136-145 [facility] Comment on above: Performed By: #### C BC, BMP, LIPID, AST, ALT #### [facility] [address] Urea nitrogen [Mass/Vol] 18 mg/dL Normal 7-25 [facility] Comment on above: Performed By: #### C BC, BMP, LIPID, AST, ALT #### [facility] [address] [place] [address] [place] Basophils Auto (Bld) [#/Vol] Ordered By: Adolfo Gomez on 12-17-2022 Basophils (Bld) [#/Vol] 0.1 10*3/uL 0.0-0.2 [facility] Basophils/100 WBC Auto (Bld) Ordered By: Adolfo Gomez on 12-17-2022 Basophils/100 WBC (Bld) 1.2 % . F [facility] Calcium [Mass/volume] in Ser um or PlasmaOrdered By: Adolfo Gomez on 12-17-2022 Calcium [Mass/Vol] 10.4 mg/dL 8.6-10.3 [facility] Carbon dioxide, total [Moles /volume] in Serum or PlasmaOrdered By: Adolfo Gomez on 12-17-2022 CO2 [Moles/Vol] 31.3 mmol/L 21.0-31.0 [facility] Chloride [Moles/volume] in S jabari or PlasmaOrdered By: Adolfo Gomez on 12-17-2022 Chloride [Moles/Vol] 101 mmol/L 98-107 [facility] Cholesterol [Mass/volume] in Serum or PlasmaOrdered By: Adolfo Gomez on 12-17-2022 Cholesterol [Mass/Vol] 158 mg/dL 140-200 [facility] Comment on above: Chol less than 200 m g/dl low riskChol 201-239 mg/dl borderline riskChol 240 mg/dl and greater high risk Cholesterol in LDL Calc [Mas s/Vol]Ordered By: Adolfo Gomez on 12-17-2022 Cholesterol in LDL [Mass/Vol] 50 mg/dL 0-100 [facility] Comment on above: LDL ATP III CLASSIFI CATIONLDL less than 100 mg/dL OptimalLDL 100-129 mg/dL Near or above optimalLDL 130-159 mg/dL Borderline highLDL 160-189 mg/dL HighLDL greater than 189 mg/dL Very high Cholesterol in VLDL Calc [Ma ss/Vol]Ordered By: Adolfo Gomez on 12-17-2022 Cholesterol in VLDL [Mass/Vol] 65 mg/dL [facility] Complete Blood Count Auto Di ffon 12-17-2022 Basophils (Bld) [#/Vol] 0.1 10*3/uL Normal 0.0-0.2 [facility] Comment on above: Result Comment: PERF ORMED BY: [place] [address] PATHOLOGIST [employer]OR[employer]ED [employer] MELQUIADES CAUSEY M.D. Performed By: #### C BC, BMP, LIPID, AST, ALT #### [address] Basophils/100 WBC (Bld) 1.2 % Normal . F [facility] Comment on above: Performed By: #### C BC, BMP, LIPID, AST, ALT #### [address] Eosinophils (Bld) [#/Vol] 0.2 10*3/uL Normal 0.0-0.45 [facility] Comment on above: Performed By: #### C BC, BMP, LIPID, AST, ALT #### [address] Eosinophils/100 WBC (Bld) 2.9 % Normal . [facility] Comment on above: Performed By: #### C BC, BMP, LIPID, AST, ALT #### [address] Erythrocyte distribution width (RBC) [Ratio] 13.8 % Normal 12.0-14.8 [facility] Comment on above: Performed By: #### C BC, BMP, LIPID, AST, ALT #### [address] Hematocrit (Bld) [Volume fraction] 49.8 % Normal 38.8-50.0 [facility] Comment on above: Performed By: #### C BC, BMP, LIPID, AST, ALT #### [address] Hemoglobin (Bld) [Mass/Vol] 16.9 g/dL Normal 13.0-17.0 [facility] Comment on above: Performed By: #### C BC, BMP, LIPID, AST, ALT #### [address] Lymphocytes (Bld) [#/Vol] 2.0 10*3/uL Normal 1.00-4.8 [facility] Comment on above: Performed By: #### C BC, BMP, LIPID, AST, ALT #### [address] Lymphocytes/100 WBC (Bld) 28.6 % Normal . [facility] Comment on above: Performed By: #### C BC, BMP, LIPID, AST, ALT #### [address] MCH (RBC) [Entitic mass] 29.6 pg Normal 27.5-35.2 [facility] Comment on above: Performed By: #### C BC, BMP, LIPID, AST, ALT #### [address] MCV (RBC) [Entitic vol] 87.3 fL Normal 83.5-101 F [facility] Comment on above: Performed By: #### C BC, BMP, LIPID, AST, ALT #### [address] Mean Corpuscular HGB Conc 33.9 g/dL Normal 32.5-35.6 [facility] Comment on above: Performed By: #### C BC, BMP, LIPID, AST, ALT #### [address] Monocytes (Bld) [#/Vol] 0.6 10*3/uL Normal 0.0-0.8 [facility] Comment on above: Performed By: #### C BC, BMP, LIPID, AST, ALT #### [address] Monocytes/100 WBC (Bld) 8.1 % Normal . F [facility] Comment on above: Performed By: #### C BC, BMP, LIPID, AST, ALT #### [address] Neutrophils (Bld) [#/Vol] 4.1 10*3/uL Normal 1.8-7.7 [facility] Comment on above: Performed By: #### C BC, BMP, LIPID, AST, ALT #### [address] Neutrophils/100 WBC (Bld) 59.2 % Normal . [facility] Comment on above: Performed By: #### C BC, BMP, LIPID, AST, ALT #### [address] NRBC% 0.2 /100{WBC} Normal 0-0.5 [facility] Comment on above: Performed By: #### C BC, BMP, LIPID, AST, ALT #### [facility] [address] Platelet mean volume (Bld) [Entitic vol] 8.1 fL Normal 6.6-10.1 [facility] Comment on above: Performed By: #### C BC, BMP, LIPID, AST, ALT #### [facility] [address] Platelets (Bld) [#/Vol] 278 10*3/uL Normal 150-450 [facility] Comment on above: Performed By: #### C BC, BMP, LIPID, AST, ALT #### [facility] [address] RBC (Bld) [#/Vol] 5.70 10*6/uL High 3.90-5.60 [facility] Comment on above: Performed By: #### C BC, BMP, LIPID, AST, ALT #### [facility] [address] WBC (Bld) [#/Vol] 6.9 10*3/uL Normal 4.1-10.5 [facility] Comment on above: Performed By: #### C BC, BMP, LIPID, AST, ALT #### [address] Creatinine [Mass/volume] in Serum or PlasmaOrdered By: Adolfo Gomez on 12-17-2022 Creatinine [Mass/Vol] 0.75 mg/dL 0.70-1.30 [facility] Eosinophils Auto (Bld) [#/Vo l]Ordered By: Adolfo Gomez on 12-17-2022 Eosinophils (Bld) [#/Vol] 0.2 10*3/uL 0.0-0.45 [facility] Eosinophils/100 WBC Auto (Bl d)Ordered By: Adolfo Gomez on 12-17-2022 Eosinophils/100 WBC (Bld) 2.9 % . [facility] Erythrocyte distribution wid th Auto (RBC) [Ratio]Ordered By: Adolfo Gomez on 12-17-2022 Erythrocyte distribution width (RBC) [Ratio] 13.8 % 12.0-14.8 [facility] Glucose [Mass/volume] in Ser um or PlasmaOrdered By: Adolfo Gomez on 12-17-2022 Glucose [Mass/Vol] 97 mg/dL 70-100 [facility] Comment on above: ADA recommended refe rence rangeRandom Glucose Reference Range is dependent on time and content of last meal. Glucose of more than 200 mg/dL in a nonstressed, ambulatory subject supports the diagnosis of Diabetes Mellitus. Hematocrit Auto (Bld) [Volum e fraction]Ordered By: Adolfo Gomez on 12-17-2022 Hematocrit (Bld) [Volume fraction] 49.8 % 38.8-50.0 [facility] Hemoglobin [Mass/volume] in BloodOrdered By: Adolfo Gomez on 12-17-2022 Hemoglobin (Bld) [Mass/Vol] 16.9 g/dL 13.0-17.0 [facility] Leukocytes [#/volume] correc ajay for nucleated erythrocytes in Blood by Automated counOrdered By: Adolfo Gomez on 12-17-2022 WBC corrected for nucl RBC Auto (Bld) [#/Vol] 6.9 10*3/uL 4.1-10.5 [facility] Lipid Panelon 12-17-2022 Cholesterol [Mass/Vol] 158 mg/dL Normal 140-200 [facility] Comment on above: Result Comment: Chol less than 200 mg/dl low risk Chol 201-239 mg/dl borderline risk Chol 240 mg/dl and greater high risk Performed By: #### C BC, BMP, LIPID, AST, ALT #### [facility] [address] [place] [address] [place] Cholesterol in HDL [Mass/Vol] 43 mg/dL Normal 23-92 [facility] Comment on above: Result Comment: HDL CHOL ATP-III CLASSIFICATION Cardiovascular Risk HDL > or equal to 60 mg/dL LOW HDL < 40 mg/dL HIGH Performed By: #### C BC, BMP, LIPID, AST, ALT #### [facility] [address] Cholesterol.total/Kaur sterol in HDL [Mass ratio] 3.7 {ratio} Normal <5.0 [facility] Comment on above: Result Comment: PERF ORMED BY: [place] [address] PATHOLOGIST [employer]ED [employer] MELQUIADES CAUSEY M.D. Performed By: #### C BC, BMP, LIPID, AST, ALT #### [address] LDL Cholesterol,Calculated 50 mg/dL Normal 0-100 [facility] Comment on above: Result Comment: LDL ATP III CLASSIFICATION LDL less than 100 mg/dL Optimal LDL 100-129 mg/dL Near or above optimal LDL 130-159 mg/dL Borderline high LDL 160-189 mg/dL High LDL greater than 189 mg/dL Very high Performed By: #### C BC, BMP, LIPID, AST, ALT #### [address] Triglyceride w/Reflex 327 mg/dL High 0-149 [facility] Comment on above: Result Comment: TRIG ATP III CLASSIFICATION TRIG less than 150 mg/dL Normal TRIG 150-199 mg/dL Borderline high TRIG 200-500 mg/dL High TRIG greater than 500 mg/dL Very high Standard traceable to the Center for Disease Conrtrol and Prevention (CDC) test method. Performed By: #### C BC, BMP, LIPID, AST, ALT #### [address] VLDL CHOLESTEROL 65 mg/dL Normal [facility] Comment on above: Performed By: #### C BC, BMP, LIPID, AST, ALT #### [address] Lymphocytes Auto (Bld) [#/Vo l]Ordered By: Adolfo Gomez on 12-17-2022 Lymphocytes (Bld) [#/Vol] 2.0 10*3/uL 1.00-4.8 [facility] Lymphocytes/100 WBC Auto (Bl d)Ordered By: Adolfo Gomez on 12-17-2022 Lymphocytes/100 WBC (Bld) 28.6 % . [facility] MCH Auto (RBC) [Entitic mass ]Ordered By: Adolfo Gomez on 12-17-2022 MCH (RBC) [Entitic mass] 29.6 pg 27.5-35.2 [facility] MCHC Auto (RBC) [Mass/Vol]Or dered By: Adolfo Gomez on 12-17-2022 MCHC (RBC) [Mass/Vol] 33.9 g/dL 32.5-35.6 [facility] MCV Auto (RBC) [Entitic vol] Ordered By: Adolfo Gomez on 12-17-2022 MCV (RBC) [Entitic vol] 87.3 fL 83.5-101 F [facility] Monocytes Auto (Bld) [#/Vol] Ordered By: Adolfo Gomez on 12-17-2022 Monocytes (Bld) [#/Vol] 0.6 10*3/uL 0.0-0.8 [facility] Monocytes/100 WBC Auto (Bld) Ordered By: Adolfo Gomez on 12-17-2022 Monocytes/100 WBC (Bld) 8.1 % . F [facility] Neutrophils Auto (Bld) [#/Vo l]Ordered By: Adolfo Gomez on 12-17-2022 Neutrophils (Bld) [#/Vol] 4.1 10*3/uL 1.8-7.7 [facility] Neutrophils/100 WBC Auto (Bl d)Ordered By: Adolfo Gomez on 12-17-2022 Neutrophils/100 WBC (Bld) 59.2 % . [facility] No Panel InformationOrdered By: Adolfo Gomez on 12-17-2022 Estimated GFR (CKD-EPI) > 60.0 mL/Min [facility] Creatinine Clearance (Chem N/A [facility] Nucleated erythrocytes [Pres ence] in Blood by Automated countOrdered By: Adolfo Gomez on 12-17-2022 Nucleated RBC Auto Ql (Bld) 0.2 /100{WBC} 0-0.5 [facility] Platelet mean volume Auto (B ld) [Entitic vol]Ordered By: Adolfo Gomez on 12-17-2022 Platelet mean volume (Bld) [Entitic vol] 8.1 fL 6.6-10.1 [facility] Platelets Auto (Bld) [#/Vol] Ordered By: Adolfo Gomez on 12-17-2022 Platelets (Bld) [#/Vol] 278 10*3/uL 150-450 [facility] Potassium [Moles/volume] in Serum or PlasmaOrdered By: Adolfo Gomez on 12-17-2022 Potassium [Moles/Vol] 4.2 mmol/L 3.5-5.1 [facility] RBC Auto (Bld) [#/Vol]Ordere d By: Adolfo Gomez on 12-17-2022 RBC (Bld) [#/Vol] 5.70 10*6/uL 3.90-5.60 [facility] Serum or plasma anion gap de terminationOrdered By: Adolfo Gomez on 12-17-2022 Anion gap [Moles/Vol] 11.9 mmol/L 6.0-15.0 Fi [facility] Serum or plasma high density lipoprotein (HDL) cholesterol measurementOrdered By: Adolfo Gomez on 12-17-2022 Cholesterol in HDL [Mass/Vol] 43 mg/dL 23-92 [facility] Comment on above: HDL CHOL ATP-III CLA SSIFICATION Cardiovascular RiskHDL > or equal to 60 mg/dL LOWHDL < 40 mg/dL HIGH Serum or plasma total choles terol/high density lipoprotein (HDL) cholesterol mass ratOrdered By: Adolfo Gomez on 12-17-2022 Cholesterol.total/Kaur sterol in HDL [Mass ratio] 3.7 {ratio} <5.0 [facility] Sodium [Moles/volume] in Ser um or PlasmaOrdered By: Adolfo Gomez on 12-17-2022 Sodium [Moles/Vol] 140 mmol/L 136-145 [facility] Triglyceride [Mass/volume] i n Serum or PlasmaOrdered By: Adolfo Gomez on 12-17-2022 Triglyceride [Mass/Vol] 327 mg/dL 0-149 F [facility] Comment on above: TRIG ATP III CLASSIF ICATIONTRIG less than 150 mg/dL NormalTRIG 150-199 mg/dL Borderline highTRIG 200-500 mg/dL High TRIG greater than 500 mg/dL Very highStandard traceable to the Center for Disease Conrtrol and Prevention (CDC) test method. Urea nitrogen [Mass/volume] in Serum or PlasmaOrdered By: Adolfo Gomez on 12-17-2022 Urea nitrogen [Mass/Vol] 18 mg/dL 09-02 [facility] WBC Auto (Bld) [#/Vol]Ordere d By: Adolfo Gomez on 12-17-2022 WBC (Bld) [#/Vol] 6.9 10*3/uL 4.1-10.5 [facility] Office Visit (Cardiology)on 06-16-2022 Follow-up visit Diagnoses/Problems Assessed Atherosclerosis of coronary artery of andreafski heart without angina pectoris (414.01) (I25.10) S/P coronary angioplasty (V45.82) (Z98.61) LAD 2017 Obstructive sleep apnea syndrome (327.23) (G47.33) Hyperlipidemia (272.4) (E78.5) Former smoker (V15.82) (Z87.891) quit 2004, 2 ppd Class 1 obesity with body mass index (BMI) of 34.0 to 34.9 in adult (278.00,V85.34) (E66.9,Z68.34) Deafness (389.9) (H91.90) Elevated liver enzymes (790.5) (R74.8) Orders Atherosclerosis of coronary artery of andreafski heart without angina pectoris, Hyperlipidemia ALT - Alanine Aminotransferase, Serum; Status:Active - Retrospective Authorization; Requested for:17Dec2022; AST; Status:Active - Retrospective Authorization; Requested for:17Dec2022; Basic Metabolic Panel; Status:Active - Retrospective Authorization; Requested for:17Dec2022; Complete Blood Count; Status:Active - Retrospective Authorization; Requested for:17Dec2022; Lipid Panel; Status:Active - Retrospective Authorization; Requested for:17Dec2022; Class 1 obesity with body mass index (BMI) of 34.0 to 34.9 in adult Healthy Weight Tips; Status:Complete - Retrospective Authorization; Done: 16Jun2022 Some eating tips that can help you lose weight.; Status:Complete - Retrospective Authorization; Done: 16Jun2022 SocHx: Former smoker Tobacco Use Screening; Status:Complete; Done: 16Jun2022 Patient Instructions Please bring all medicines, vitamins, and herbal supplements with you when you come to the office. Prescriptions will not be filled unless you are compliant with your follow up appointments or have a follow up appointment scheduled as per instruction of your physician. Refills should be requested at the time of your visit. Labs requested from PCP Follow up in [6 ] months Chief Complaint MYNOR DORSEY is being seen for a 6 month follow-up of. Patient is in the office for follow-up accompanied by his . 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 His indicated that he has not had any trouble since he was last seen in the office several months ago. His weight has come down nicely by lifestyle changes. There has been no angina. He had recent blood work through his PCP which we requested. His last lipid profile from last fall was on target on Repatha and ezetimibe. He is intolerant to statin due to elevated liver enzymes. Assessment/recommenda tion: 1?single-vessel coronary artery disease status post angioplasty of the anterior descending artery in October 2017. Patient was advised to continue aspirin indefinitely. 2?hyperlipidemia on Zetia, and Repatha. No side effects. Lipid profile Is on target 3? sleep apnea, currently on CPAP machine 4?obesity, advice the patient Has lost significant weight since her last visit but lifestyle changes 5?elevated liver enzyme while on statin therapy. Recent lab data showed minimal elevation of transaminase 6?patient is totally deaf and communication with him is through his using sign language Surgical History Problems History of Abdominal surgery History of Complete colonoscopy Managed By: Ajay Lew DO History of Foot surgery History of Percutaneous transluminal coronary angioplasty Past Medical History Problems History of Abnormal liver enzymes (790.5) (R74.8) Resolved Date: 17 Dec 2021 History of Edema of both legs (782.3) (R60.0) Resolved Date: 17 Dec 2021 History of Encounter for immunization (V03.89) (Z23) Resolved Date: 17 Dec 2021 History of snoring (V15.89) (Z87.898) Resolved Date: 17 Dec 2021 History of Hypersomnia (780.54) (G47.10) Resolved Date: 17 Dec 2021 Current Meds Medication NameInstruction Aspirin EC 81 MG TBECTAKE 1 TABLET DAILY. Ezetimibe 10 MG Oral TabletTAKE 1 TABLET BY MOUTH EVERY DAY hydroCHLOROthiazide 25 MG Oral TabletTAKE 1 TABLET DAILY. Lansoprazole 30 MG Oral Capsule Delayed ReleaseTAKE 1 CAPSULE EVERY MORNING DAILY. Meclizine HCl - 25 MG Oral TabletTAKE 1 TABLET 4 TIMES DAILY NEEDED FOR DIZZINESS. Meclizine HCl - 25 MG Oral TabletTAKE 1 TABLET BY MOUTH 4 TIMES A DAY NEEDED metFORMIN HCl ER 500 MG Oral Tablet Extended Release 24 HourTAKE 1 TABLET BY MOUTH EVERY DAY WITH EVENING MEAL Repatha SureClick 140 MG/ML Subcutaneous Solution Auto-injectorone injection every 2 weeks. Tylenol 500 MG CAPSTAKE CAPSULE prn Allergies Medication Statins Adverse Reaction; elevated lfts; Recorded By: Monica Lyon; 04/05/2021 11:24:03 AM Social History Problems Caffeine use (V49.89) (Z78.9) 2-4 cups coffee morning, tea/pop once in awhile Former smoker (V15.82) (Z87.891) quit 2003, 2 ppd No alcohol use No illicit drug use Review of Systems Constitutional: not feeling tired. Cardiovascular: no intermittent leg claudication and as noted in HPI. Respiratory: no cough and no shortness of breath. Gastrointestinal: no change in bowel habits and no blood in stools. Integumentary: no skin rashes. Neurological: no sei (more content not included)... Normal [facility] Tobacco Screening.on 023 Adult depression screening assessment No [facility] 250 DO Work Phone: Fall risk assessment a) No falls within the last year [facility] 250 DO Work Phone: Tobacco use status CPHS b) No [facility] 250 DO Work Phone: Cholesterol [Mass/volume] in Serum or PlasmaOrdered By: Adolfo Gomez on 12-17-2021 Cholesterol [Mass/Vol] 172 mg/dL 140-200 [facility] Comment on above: Chol less than 200 m g/dl low riskChol 201-239 mg/dl borderline riskChol 240 mg/dl and greater high risk Cholesterol in LDL Calc [Mas s/Vol]Ordered By: Adolfo Gomez on 12-17-2021 Cholesterol in LDL [Mass/Vol] 72 mg/dL 0-100 [facility] Comment on above: LDL ATP III CLASSIFI CATIONLDL less than 100 mg/dL OptimalLDL 100-129 mg/dL Near or above optimalLDL 130-159 mg/dL Borderline highLDL 160-189 mg/dL HighLDL greater than 189 mg/dL Very high Cholesterol in VLDL Calc [Ma ss/Vol]Ordered By: Adolfo Gomez on 12-17-2021 Cholesterol in VLDL [Mass/Vol] 56 mg/dL [facility] Laboratory - Chemistry and C hemistry - challengeon 12-17-2021 Cholesterol [Mass/Vol] 172\S\172 Normal 140-200 [facility] 250 DO Work Phone: Comment on above: Chol less than 200 m g/dl low risk Chol 201-239 mg/dl borderline risk Chol 240 mg/dl and greater high risk Cholesterol in LDL [Mass/Vol] 72\S\72 Normal 0-100 [facility] DO Work Phone: Comment on above: LDL ATP III CLASSIFI CATION LDL less than 100 mg/dL Optimal LDL 100-129 mg/dL Near or above optimal LDL 130-159 mg/dL Borderline high LDL 160-189 mg/dL High LDL greater than 189 mg/dL Very high No Panel Informationon 12-17 44\S\44 Normal 29-71 [facility] 250 DO Work Phone: Comment on above: HDL CHOL ATP-III CLA SSIFICATION Cardiovascular Risk HDL > or equal to 60 mg/dL LOW HDL < 40 mg/dL HIGH 53\S\53 Normal 10-60 [facility] 250 DO Work Phone: 3.9\S\3.9 Normal <5.0 [facility] 250 DO Work Phone: Comment on above: PERFORMED BY:[place] [address] [place] [phone] MEDICAL DIRECTORMELQUIADES CAUSEY M.D. 56\S\56 [facility] [place] [facility] DO Work Phone: 282\S\282 above high threshold 35-149 [facility] [employer] (Social Influence Quotient[employer] [place] 250 DO Work Phone: Comment on above: TRIG ATP III CLASSIF ICATION TRIG less than 150 mg/dL Normal TRIG 150-199 mg/dL Borderline high TRIG 200-500 mg/dL High TRIG greater than 500 mg/dL Very high Standard traceable to the Center for Disease Conrtrol and Prevention (CDC) test method. Office Visit (Cardiology)on 12-17-2021 Follow-up visit Diagnoses/Problems Assessed Atherosclerosis of coronary artery of andreafski heart without angina pectoris (414.01) (I25.10) Hyperlipidemia (272.4) (E78.5) Elevated liver enzymes (790.5) (R74.8) Class 2 obesity with body mass index (BMI) of 36.0 to 36.9 in adult (278.00,V85.36) (E66.9,Z68.36) Former smoker (V15.82) (Z87.891) quit 2004, 2 ppd S/P coronary angioplasty (V45.82) (Z98.61) LAD 2018 Obstructive sleep apnea syndrome (327.23) (G47.33) History of Abnormal liver enzymes (790.5) (R74.8) Orders Atherosclerosis of coronary artery of andreafski heart without angina pectoris, Elevated liver enzymes, Hyperlipidemia ALT - Alanine Aminotransferase, Serum; Status:Active - Retrospective Authorization; Requested for:17Dec2021; AST; Status:Active - Retrospective Authorization; Requested for:17Dec2021; Atherosclerosis of coronary artery of andreafski heart without angina pectoris, Hyperlipidemia Lipid Panel; Status:Active - Retrospective Authorization; Requested for:17Dec2021; Class 2 obesity with body mass index (BMI) of 36.0 to 36.9 in adult Healthy Weight Tips; Status:Complete - Retrospective Authorization; Done: 17Dec2021 Some eating tips that can help you lose weight.; Status:Complete - Retrospective Authorization; Done: 17Dec2021 SocHx: Former smoker Tobacco Use Screening; Status:Complete; Done: 17Dec2021 Patient Instructions Please bring all medicines, vitamins, and herbal supplements with you when you come to the office. Prescriptions will not be filled unless you are compliant with your follow up appointments or have a follow up appointment scheduled as per instruction of your physician. Refills should be requested at the time of your visit. Spouse Mami present to interpret for pt continue current medications Follow up in 6 months Chief Complaint MYNOR DORSEY is being seen for a 6 month follow-up of. Patient is in the office for follow-up accompanied by his . He is mute but his communicate through sign language. Since he was last seen in the office he has not any problem whatsoever denies any chest pain orthopnea PND his weight has come down nicely. He started taking Repatha and is scheduled to have lipid profile liver function test today. Had no side effect of medications. Examination is only remarkable for obesity. Assessment/recommenda tion: 1?single-vessel coronary artery disease status post angioplasty of the anterior descending artery in October 2017. Patient was advised to continue aspirin indefinitely. 2?hyperlipidemia on Zetia, and Repatha. No side effects. Lipid profile is ordered. 3? sleep apnea, currently on CPAP machine 4?morbid obesity, advice the patient through his to work on his weight with reduce calorie intake and increase in exercise capacity 5?elevated liver enzyme while on statin therapy. Follow-up plan daily as ordered.. 6?patient is totally deaf and communication with him is through his using sign language Surgical History Problems History of Abdominal surgery History of Complete colonoscopy Managed By: Ajay Lew DO History of Foot surgery History of Percutaneous transluminal coronary angioplasty Past Medical History Problems History of Abnormal liver enzymes (790.5) (R74.8) Resolved Date: 17 Dec 2021 History of Edema of both legs (782.3) (R60.0) History of Encounter for immunization (V03.89) (Z23) History of snoring (V15.89) (Z87.898) Resolved Date: 17 Dec 2021 History of Hypersomnia (780.54) (G47.10) Current Meds Medication NameInstruction Aspirin EC 81 MG Oral Tablet Delayed ReleaseTAKE 1 TABLET DAILY. Ezetimibe 10 MG Oral TabletTAKE 1 TABLET BY MOUTH EVERY DAY hydroCHLOROthiazide 25 MG Oral TabletTAKE 1 TABLET DAILY. Lansoprazole 30 MG Oral Capsule Delayed ReleaseTAKE 1 CAPSULE EVERY MORNING DAILY. metFORMIN HCl - 500 MG Oral TabletTAKE 1 TABLET DAILY. Repatha SureClick 140 MG/ML Subcutaneous Solution Auto-injectorone injection every 2 weeks. Tylenol 500 MG CAPSTAKE CAPSULE prn Patient did not bring medication list or bottles. Updated verbally with patient Allergies Medication Statins Adverse Reaction; elevated lfts; Recorded By: Monica Lyon; 04/05/2021 11:24:03 AM Social History Problems Caffeine use (V49.89) (Z78.9) 2-4 cups coffee morning, tea/pop once in awhile Former smoker (V15.82) (Z87.891) quit 2003, 2 ppd No alcohol use No illicit drug use Review of Systems Constitutional: not feeling tired. Cardiovascular: no intermittent leg claudication and as noted in HPI. Respiratory: no cough and no shortness of breath. Gastrointestinal: no change in bowel habits and no blood in stools. Integumentary: no skin rashes. Neurological: no seizures and no frequent falls. All other systems have been reviewed and are negative for complaint. Vitals Vital Signs Recorded: 17Dec2021 10:42AM Heart Rate74, R Radial [id number], RUE, Sitting [id number], RUE, Sitting Height6 ft (more content not included)... Normal [facility] Serum or plasma alanine carroll otransferase measurement without P-5'-P (enzymatic activiOrdered By: Adolfo Gomez on 12-17-2021 ALT No additional P-5'-P [Catalytic activity/Vol] 53 U/L [facility] Serum or plasma aspartate am inotransferase measurement (enzymatic activity/volume)Ordered By: Adolfo Gomez on 12-17-2021 AST [Catalytic activity/Vol] 44 U/L [facility] Serum or plasma high density lipoprotein (HDL) cholesterol measurementOrdered By: Adolfo Gomez on 12-17-2021 Cholesterol in HDL [Mass/Vol] 44 mg/dL [facility] Comment on above: HDL CHOL ATP-III CLA SSIFICATION Cardiovascular RiskHDL > or equal to 60 mg/dL LOWHDL < 40 mg/dL HIGH Serum or plasma total choles terol/high density lipoprotein (HDL) cholesterol mass ratOrdered By: Adolfo Gomez on 12-17-2021 Cholesterol.total/Kaur sterol in HDL [Mass ratio] 3.9 {ratio} <5.0 [facility] Tobacco Screening.on 022 Adult depression screening assessment No [facility] [address] DO Work Phone: Fall risk assessment a) No falls within the last year [facility] [address] DO Work Phone: Tobacco use status CPHS b) No [facility] 250 DO Work Phone: Triglyceride [Mass/volume] i n Serum or PlasmaOrdered By: Adolfo Gomez on 12-17-2021 Triglyceride [Mass/Vol] 282 mg/dL 35-149 F [facility] Comment on above: TRIG ATP III CLASSIF ICATIONTRIG less than 150 mg/dL NormalTRIG 150-199 mg/dL Borderline highTRIG 200-500 mg/dL High TRIG greater than 500 mg/dL Very highStandard traceable to the Center for Disease Conrtrol and Prevention (CDC) test method. Complete Blood Count with Au to Diffon 02-27-2021 Basophils (Bld) [#/Vol] 0.08 10*3/uL Normal 0.00-0.20 [facility] Specialist Comment on above: Performed By: #### C BCAD, CMP #### [facility] [address], [place] [id number] Basophils/100 WBC (Bld) 1.4 % Normal N [facility] Comment on above: Performed By: #### C BCAD, CMP #### [facility] [address], [place] [id number] Eosinophils (Bld) [#/Vol] 0.20 10*3/uL Normal 0.02-0.50 [facility] Comment on above: Performed By: #### C BCAD, CMP #### [facility] [address], [place] [id number] Eosinophils/100 WBC (Bld) 3.5 % Normal [facility] Comment on above: Performed By: #### C BCAD, CMP #### [facility] [address], [place] [id number] Erythrocyte distribution width (RBC) [Ratio] 13.3 % Normal 11.0-15.0 [facility] Comment on above: Performed By: #### C BCAD, CMP #### [facility] [address], [place] [id number] Hematocrit (Bld) [Volume fraction] 52.9 % High 38.5-50.0 [facility] Comment on above: Performed By: #### C BCAD, CMP #### [facility] [address], [place] [id number] Hemoglobin (Bld) [Mass/Vol] 17.1 g/dL Normal 13.0-17.1 [facility] Comment on above: Performed By: #### C BCAD, CMP #### [facility] [address], [place] [id number] Lymphocytes (Bld) [#/Vol] 1.7 10*3/uL Normal 0.9-3.9 [facility] Comment on above: Performed By: #### C BCAD, CMP #### [facility] [address], [place] [id number] Lymphocytes/100 WBC (Bld) 29.6 % Normal [facility] Comment on above: Performed By: #### C BCAD, CMP #### [facility] [address], [place] [id number] MCH (RBC) [Entitic mass] 29.2 pg Normal 27.0-33.0 [facility] Comment on above: Performed By: #### C BCAD, CMP #### [facility] [address], [place] [id number] MCHC (RBC) [Mass/Vol] 32.3 g/dL Normal 32.0-36.0 [facility] Comment on above: Performed By: #### C BCAD, CMP #### [facility] [address], [place] [id number] MCV (RBC) [Entitic vol] 90 fL Normal 80-100 N [facility] Specialist Comment on above: Performed By: #### C BCAD, CMP #### [facility] [address], [place] [id number] Monocytes (Bld) [#/Vol] 0.5 10*3/uL Normal 0.2-0.9 [facility] Comment on above: Performed By: #### C BCAD, CMP #### [facility] [address], [place] [id number] Monocytes/100 WBC (Bld) 8.9 % Normal N [facility] Comment on above: Performed By: #### C BCAD, CMP #### [facility] [address], [place] [id number] Neutrophils (Bld) [#/Vol] 3.2 10*3/uL Normal 1.5-7.8 [facility] Comment on above: Performed By: #### C BCAD, CMP #### [facility] [address], [place] [id number] Neutrophils/100 WBC (Bld) 56.1 % Normal [facility] Comment on above: Performed By: #### C BCAD, CMP #### [facility] [address], [place] [id number] Platelet mean volume (Bld) [Entitic vol] 10.40 fL Normal 7.50-12.50 [facility] Comment on above: Performed By: #### C BCAD, CMP #### [facility] [address], [place] [id number] Platelets (Bld) [#/Vol] 247 10*3/uL Normal 140-400 [facility] Comment on above: Performed By: #### C BCAD, CMP #### [facility] [address], [place] [id number] RBC (Bld) [#/Vol] 5.86 10*6/uL High 4.20-5.80 [facility] Comment on above: Performed By: #### C BCAD, CMP #### [facility] [address], [place] [id number] RDW-SD 44.9 fL Normal 37.0-50.0 [facility] Comment on above: Performed By: #### C BCAD, CMP #### [facility] [address], [place] [id number] WBC (Bld) [#/Vol] 5.6 10*3/uL Normal 3.8-11.0 [facility] [employer] Certified Behavioral Analyst Comment on above: Performed By: #### C BCAD, CMP #### [facility] [address], [place] [id number] Comprehensive Metabolic Pane best 02-27-2021 Albumin [Mass/Vol] 4.4 g/dL Normal 3.6-5.1 [facility] [place] Board Certified Behavioral Analyst Comment on above: Performed By: #### C BCAD, CMP #### [facility] [address], [place] [id number] Albumin/Globulin [Mass ratio] 1.9 {ratio} Normal 1.0-2.5 [facility] Board Certified Behavioral Analyst Comment on above: Performed By: #### C BCAD, CMP #### [facility] [address], [place] [id number] ALP [Catalytic activity/Vol] 85 U/L Normal 40-129 [facility] Board Certified Behavioral Analyst Comment on above: Performed By: #### C BCAD, CMP #### [facility] [address], [place] [id number] ALT [Catalytic activity/Vol] 87 U/L High 9-46 [facility] Comment on above: Result Comment: 01/09 Female reference range changed. Performed By: #### C BCAD, CMP #### [facility] [address], [place] [id number] Anion gap [Moles/Vol] 18 mmol/L Normal 12-20 [facility] Specialist Comment on above: Result Comment: Effe ctive 02/14/2019 reference range changed. Performed By: #### C BCAD, CMP #### [facility] [address], [place] [id number] AST [Catalytic activity/Vol] 76 U/L High 10-40 [facility] Comment on above: Performed By: #### C BCAD, CMP #### [facility] [address], [place] [id number] Bilirubin [Mass/Vol] 0.59 mg/dL Normal 0.30-1.20 [facility] Specialist Comment on above: Performed By: #### C BCAD, CMP #### [facility] [address], [place] [id number] BUN/CREA 17 Ratio Normal 6-22 [facility] Comment on above: Performed By: #### C BCAD, CMP #### [facility] [address], [place] [id number] Calcium [Mass/Vol] 10.3 mg/dL High 8.6-10.2 Kyara barba [place] Board Certified Behavioral Analyst Comment on above: Performed By: #### C BCAD, CMP #### [facility] [address], [place] [id number] Chloride [Moles/Vol] 100 mmol/L Normal 98-107 [facility] Comment on above: Performed By: #### C BCAD, CMP #### [facility] [address], [place] [id number] CO2 [Moles/Vol] 25 mmol/L Normal 20-31 [facility] Comment on above: Performed By: #### C BCAD, CMP #### [facility] [address], [place] [id number] Creatinine [Mass/Vol] 0.8 mg/dL Normal 0.7-1.4 [facility] Comment on above: Performed By: #### C BCAD, CMP #### [facility] [address], [place] [id number] eGFRAA 112 mL/min/1.73m2 Normal >60 [facility] Specialist Comment on above: Performed By: #### C BCAD, CMP #### [facility] [address], [place] [id number] eGFRNAA 92 mL/min/1.73m2 Normal >60 [facility] Specialist Comment on above: Performed By: #### C BCAD, CMP #### [facility] [address], [place] [id number] Globulin (S) [Mass/Vol] 2.3 g/dL Normal 1.9-3.7 [facility] Comment on above: Performed By: #### C BCAD, CMP #### [facility] [address] [place], [place] [id number] Glucose [Mass/Vol] 115 mg/dL High 65-99 Kyara barba [place] Board Certified Behavioral Analyst Comment on above: Result Comment: For FASTING Glucose --- ADA reference ranges: Normal 65-99 mg/dl Prediabetes 100-125 Diabetes >/= 126 Performed By: #### C BCAD, CMP #### [facility] [address], [place] [id number] Potassium [Moles/Vol] 3.9 mmol/L Normal 3.5-5.5 [facility] Comment on above: Performed By: #### C BCAD, CMP #### [facility] [address], [place] [id number] Protein [Mass/Vol] 6.7 g/dL Normal 6.1-8.1 [facility] Board Certified Behavioral Analyst Comment on above: Performed By: #### C BCAD, CMP #### [facility] [address], [place] [id number] Sodium [Moles/Vol] 139 mmol/L Normal 135-146 [facility] Board Certified Behavioral Analyst Comment on above: Performed By: #### C BCAD, CMP #### [facility] [address], [place] [id number] Urea nitrogen [Mass/Vol] 14 mg/dL Normal 7-25 [facility] Comment on above: Performed By: #### C BCAD, CMP #### [facility] [address], [place] [id number] Hemoglobin A1Con 02-27-2021 EAG 125.50 Normal [facility] Comment on above: Performed By: #### A 1C #### [facility] [address], [place] [id number] HbA1c (Bld) [Mass fraction] 6.0 % Normal 4.0-6.0 [facility] Comment on above: Performed By: #### A 1C #### [facility] [address], [place] [id number] PSA SCREEN (MEDICARE)on 02-09 PSA, TOTAL 2.69 ng/mL Normal < OR = 4.00 [facility] Board Certified Behavioral Analyst Comment on above: Order Comment: [facility] Testing performed at: QPT, [facility], [address], [address] [facility], [place], [address], Intermission Coordinator: Marek Saab MD [facility] Collection Date/Time: [facility] Results Received Date/Time: [facility] Reported Date/Time: Result Comment: The total PSA value from this assay system is standardized against the WHO standard. The test result will be approximately 20% lower when compared to the equimolar-standardized total PSA (Ankur Engadine). Comparison of serial PSA results should be interpreted with this fact in mind. This test was performed using the Siemens chemiluminescent method. Values obtained from different assay methods cannot be used interchangeably. PSA levels, regardless of value, should not be interpreted as absolute evidence of the presence or absence of disease. Performed By: #### P SA MC #### [facility] Default [address] [place] [id number] ALT (SGPT)on 01-14-2021 ALT [Catalytic activity/Vol] 99 U/L High 9-46 [facility] Comment on above: Result Comment: 01/09 Female reference range changed. Performed By: #### A LT, AST, LIPD #### [facility] [address] [place], [place] [id number] AST (SGOT)on 01-14-2021 AST [Catalytic activity/Vol] 94 U/L High 10-40 [facility] Comment on above: Performed By: #### A LT, AST, LIPD #### [facility] [address], [place] [id number] Lipid Panelon 01-14-2021 Cholesterol [Mass/Vol] 320 mg/dL High 125-200 [facility] Comment on above: Result Comment: Low risk < 200mg/dL Borderline risk 201-239 mg/dl High risk > or equal to 240 Performed By: #### A LT, AST, LIPD #### [facility] [address], [place] [id number] Cholesterol in HDL [Mass/Vol] 35 mg/dL Low >40 [facility] Comment on above: Result Comment: High Cardiovascular Risk HDL <40 mg/dL Low Cardiovascular Risk HDL > or equal to 60 mg/dl Performed By: #### A LT, AST, LIPD #### [facility] [address], [place] [id number] Cholesterol in LDL [Mass/Vol] 217 mg/dL Normal [facility] Comment on above: Result Comment: LDL ATP III CLASSIFICATION LDL less than 100 mg/dl Optimal LDL 100-129 mg/dl Near or above optimal LDL 130-159 Borderline high LDL 160-189 High LDL greater than 189 mg/dl Very High Performed By: #### A LT, AST, LIPD #### [facility] [address] [place], [place] [id number] Cholesterol in VLDL [Mass/Vol] 68 mg/dL Normal [facility] Comment on above: Performed By: #### A LT, AST, LIPD #### [facility] [address], [place] [id number] Cholesterol.total/Kaur sterol in HDL [Mass ratio] 9 {ratio} Normal [facility] Comment on above: Performed By: #### A LT, AST, LIPD #### [facility] [address], [place] [id number] Triglyceride [Mass/Vol] 339 mg/dL High 30-150 N [facility] Comment on above: Result Comment: TRIG ATPIII CLASSIFICATIONS TRIG less than 150 mg/dl Normal TRIG 150-199 mg/dl Borderline High TRIG 200-500 mg/dl High TRIG greather than 500 mg/dl Very High Performed By: #### A LT, AST, LIPD #### [facility] [address] [place], [place] [id number] Tobacco Screening.on 021 Fall risk assessment a) No falls within the last year [facility] [address] [place] Work Phone: Tobacco use status [facility] b) No [facility] [address] [place] Work Phone: Vital Signs Date Time Vital Sign Value Performing Clinician Facility 03-05-2023 09:57-0500 Body height 182.88 cm DO Elizabeth Benjamin Work Phone: [facility] 03-05-2023 09:57-0500 Body weight 102.05 kg DO Elizabeth Benjamin Work Phone: [facility] 02-25-2023 09:30-0500 Body height 177.8 cm Samir Dunn Other [employer] Other 02-25-2023 09:30-0500 Body mass index (BMI) [Ratio] 36.51 kg/m2 Samir Dunn Other [employer] Other 02-25-2023 09:30-0500 Body weight 115.44 kg Samir Dunn Other [employer] Other 02-25-2023 09:30-0500 Diastolic blood pressure 69 mm[Hg] Samir Dunn Other [employer] Other 02-25-2023 09:30-0500 SaO2% (BldA) [Mass fraction] 96 % Samir Dunn Other [employer] Other 02-25-2023 09:30-0500 Systolic blood pressure 121 mm[Hg] Samir Dunn Other [employer] Other 01-16-2023 09:13-0500 Blood Pressure Location Kely Lue [facility] 01-16-2023 08:44-0500 Blood Pressure Location Kely Lue [facility] 01-16-2023 08:44-0500 Body temperature 96.98 [degF] Kely Lue [facility] 01-16-2023 08:44-0500 Diastolic blood pressure 89 mm[Hg] Kely Lue [facility] 01-16-2023 08:44-0500 Systolic blood pressure 127 mm[Hg] Kely Lue [facility] 12-24-2022 09:36-0500 Diastolic blood pressure 70 mm[Hg] Adolfo Gomez MD Work Phone: [facility] 12-24-2022 09:36-0500 Systolic blood pressure 118 mm[Hg] Adolfo Gomez MD Work Phone: [facility] 12-24-2022 09:22-0500 Body height 182.9 cm Adolfo Gomez MD Work Phone: [facility] 12-24-2022 09:22-0500 Body mass index (BMI) [Ratio] 34.72 kg/m2 Adolfo Gomez MD Work Phone: [facility] 12-24-2022 09:22-0500 Body weight 116.12 kg Adolfo Gomez MD Work Phone: [facility] 12-24-2022 09:22-0500 Heart rate 68 /min Adolfo Gomez MD Work Phone: [facility] 06-16-2022 14:33-0400 Body height 182.88 cm Mary Benjamin Work Phone: [facility] [address] [place] Work Phone: 06-16-2022 14:33-0400 Body mass index (BMI) [Ratio] 34.58 kg/m2 Mary Benjamin Work Phone: [facility] [address] [place] Work Phone: 06-16-2022 14:33-0400 Body surface area Derived from formula 2.36 m2 Mary Benjamin Work Phone: [facility] [address] [place] Work Phone: 06-16-2022 14:33-0400 Body weight 115.67 kg Mary Benjamin Work Phone: [facility] [address] [place] Work Phone: 06-16-2022 14:33-0400 Diastolic blood pressure 62 mm[Hg] Mary Benjamin Work Phone: [facility] [address] [place] Work Phone: 06-16-2022 14:33-0400 Heart rate 62 /min Mary Benjamin Work Phone: [facility] [place] Work Phone: 06-16-2022 14:33-0400 Systolic blood pressure 102 mm[Hg] Mary Benjamin Work Phone: [facility] [address] [place] Work Phone: 12-31-2021 15:15-0500 Body height 177.8 cm Samir Dunn Other [employer] Other 12-31-2021 15:15-0500 Body mass index (BMI) [Ratio] 37.88 kg/m2 Samir Dunn Other [employer] Other 12-31-2021 15:15-0500 Body temperature 97.8 [degF] Samir Dunn Other [employer] Other 12-31-2021 15:15-0500 Body weight 119.75 kg Samir Dunn Other [employer] Other 12-31-2021 15:15-0500 Diastolic blood pressure 77 mm[Hg] Samir Dunn Other [employer] Other 12-31-2021 15:15-0500 SaO2% (BldA) [Mass fraction] 95 % Samir Dunn Other [employer] Other 12-31-2021 15:15-0500 Systolic blood pressure 142 mm[Hg] Samir Dunn Other [employer] Other 12-17-2021 13:25-0500 72 1 Mary Benjamin Work Phone: [facility] [address] DO Work Phone: Comment on above: [facility] 12-17-2021 10:42-0500 Body height 182.88 cm Mary Benjamin Work Phone: [facility] [address] DO Work Phone: 12-17-2021 10:42-0500 Body mass index (BMI) [Ratio] 36.89 kg/m2 Mary Benjamin Work Phone: [facility] [address] DO Work Phone: 12-17-2021 10:42-0500 Body surface area Derived from formula 2.43 m2 Mary Benjamin Work Phone: [facility] [address] DO Work Phone: 12-17-2021 10:42-0500 Body weight 123.38 kg Mary Benjamin Work Phone: [facility] [address] DO Work Phone: 12-17-2021 10:42-0500 Diastolic blood pressure 62 mm[Hg] Mary Benjamin Work Phone: [facility] [address] DO Work Phone: 12-17-2021 10:42-0500 Heart rate 74 /min Mary Benjamin Work Phone: [facility] [address] DO Work Phone: 12-17-2021 10:42-0500 Systolic blood pressure 98 mm[Hg] Mary Laguerrepoppy Work Phone: [facility] [address] DO Work Phone: 01-01-2021 15:30-0500 Body height 177.8 cm Samir Dunn Other [employer] Other 01-01-2021 15:30-0500 Body mass index (BMI) [Ratio] 43.04 kg/m2 Samir Dunn Other [employer] Other 01-01-2021 15:30-0500 Body temperature 97.1 [degF] Samir Dunn Other [employer] Other 01-01-2021 15:30-0500 Body weight 136.08 kg Samir Dunn Other [employer] Other 01-01-2021 15:30-0500 Diastolic blood pressure 64 mm[Hg] Samir Dunn Other [employer] Other 01-01-2021 15:30-0500 SaO2% (BldA) [Mass fraction] 95 % Samir Dunn Other [employer] Other 01-01-2021 15:30-0500 Systolic blood pressure 115 mm[Hg] Samir Dunn Other [employer] Other 12-25-2020 13:53-0500 Body height 182.88 cm Mary Benjamin Work Phone: [facility] [address] [place] Work Phone: 12-25-2020 13:53-0500 Body mass index (BMI) [Ratio] 40.42 kg/m2 Mary Benjamin Work Phone: [facility] [employer] [facility] [address] [place] Work Phone: 12-25-2020 13:53-0500 Body surface area Derived from formula 2.52 m2 Mary Benjamin Work Phone: [facility] [address] [place] Work Phone: 12-25-2020 13:53-0500 Body weight 135.17 kg Mary Benjamin Work Phone: [facility] [address] [place] Work Phone: 12-25-2020 13:53-0500 Diastolic blood pressure 86 mm[Hg] Mary Benjamin Work Phone: [facility] [address] [place] Work Phone: 12-25-2020 13:53-0500 Heart rate 74 /min Mary Benjamin Work Phone: [facility] [address] [place] Work Phone: 12-25-2020 13:53-0500 Systolic blood pressure 129 mm[Hg] Mary Benjamin Work Phone: [facility] [address] [place] Work Phone: 11-10-2018 14:58-0400 BMI (Body Mass Index) 33 kg/m2 [facility] 11-10-2018 14:58-0400 Body weight 113.39 kg [facility] 11-10-2018 14:58-0400 Height 185.42 cm [facility] 11-10-2018 14:42-0400 Body Temperature 98.3 [degF] [facility] 11-10-2018 14:42-0400 BP Diastolic 76 mm[Hg] [facility] 11-10-2018 14:42-0400 BP Systolic 120 mm[Hg] [facility] 11-10-2018 14:42-0400 Pulse (Heart Rate) 76 /min [facility] 11-10-2018 14:42-0400 Respiratory Rate 16 /min [facility] Encounters Encounter Date Encounter Type Care Provider Facility Start: 03-18-2023 ambulatory Kely Steel Facility:[facility] [place] Start: 03-13-2023 Clinisync Result Encounter Gen glen External Data Provider [facility] External Department Unsolicited Start: 03-13-2023 Clinisync Result Encounter Gen glen External Data Provider [facility] External Department Unsolicited Start: 03-05-2023 End: 03-05-2023 ambulatory Elizabeth Benjamin Facility:[facility] Start: 03-05-2023 End: 03-05-2023 ambulatory DO Elizabeth Benjamin Work Phone: [facility] Work Phone: Start: 03-05-2023 End: 03-05-2023 Patient encounter procedure DO Elizabeth Benjamin Work Phone: [facility]MRI [facility] [place] Work Phone: Start: 02-25-2023 Office outpatient vi sit 25 minutes Samir Shaun [facility] Start: 02-25-2023 End: 02-25-2023 ambulatory Samir Medellin Shaun [place] [employer] Other Start: 02-25-2023 End: 02-25-2023 Patient encounter procedure DO Elizabeth Benjamin Work Phone: [facility]-Sleep Lab Work Phone: Start: 01-21-2023 End: 01-21-2023 ambulatory Kely Steel Facility:[facility] Start: 01-21-2023 End: 01-21-2023 ambulatory DO Elizabeth Benjamin Work Phone: [facility] Work Phone: Start: 01-21-2023 End: 01-21-2023 Patient encounter procedure DO Elizabeth Benjamin Work Phone: [facility]-Lab [facility] Start: 01-16-2023 End: 01-17-2023 ambulatory Kely Steel Facility:[facility] Start: 01-16-2023 End: 01-16-2023 Patient encounter procedure Kely Steel [facility] Start: 12-24-2022 End: 12-24-2022 ambulatory ADOLFO [facility] Start: 12-24-2022 End: 12-24-2022 Office outpatient visit 25 minutes Adolfo Gomez MD Work Phone: [facility] Comment on above: Atherosclerosis of n ative coronary artery of [place] heart without angina pectoris (Primary Dx); Mixed hyperlipidemia; S/P coronary angioplasty; Obstructive sleep apnea syndrome; Class 1 obesity without serious comorbidity with body mass index (BMI) of 34.0 to 34.9 in adult, unspecified obesity type; Type 2 diabetes mellitus without complication, without long-term current use of insulin ([facility]) Start: 12-17-2022 End: 12-17-2022 ambulatory [facility] Facility:[facility] Start: 12-17-2022 End: 12-17-2022 ambulatory DO Elizabeth Benjamin Work Phone: [facility] Work Phone: Start: 12-17-2022 End: 12-17-2022 Patient encounter procedure DO Elizabeth Benjamin Work Phone: [facility] Start: 10-16-2022 ambulatory Kely Steel Facility:[facility] Start: 06-16-2022 Office outpatient vi sit 25 minutes Mary Benjamin Work Phone: [facility] 250 DO Work Phone: Start: 06-16-2022 ambulatory [facility] Facility : Start: 02-11-2022 Rx Renewal Mary shaver Work Phone: [facility] 250 DO Work Phone: Start: 01-15-2022 Rx Renewal Mary shaver Work Phone: [facility] 250 DO Work Phone: Start: 12-31-2021 End: 12-31-2021 Patient encounter procedure DO Elizabeth Benjamin Work Phone: [facility]Sleep Lab Start: 12-31-2021 End: 12-31-2021 ambulatory DO Elizabeth Benjamin Work Phone: [facility] Work Phone: Start: 12-31-2021 Office outpatient vi sit 25 minutes Samir Dunn [facility] Start: 12-20-2021 Chart Update Mary shaver Work Phone: [facility] [address] DO Work Phone: Start: 12-17-[address] Mary Benjamin Jr Facility: Start: 12-17-2021 End: 12-17-2021 Patient encounter procedure DO Elizabeth Benjamin Work Phone: [facility] Start: 01-25-2021 Telephone encounter Mary rankin Work Phone: [facility] [address] [place] Work Phone: Start: 01-01-2021 End: 01-01-2021 ambulatory Samir Dunn Other [place] [employer] Other Start: 01-01-2021 Office outpatient vi sit 25 minutes Samir Shaun [facility] Start: 12-25-2020 Office outpatient vi sit 25 minutes Mary Benjamni Work Phone: [facility] [address] [place] Work Phone: Start: 11-27-2020 Rx Renewal Adolfo Gomez MD Work Phone: [facility] [address] DO Work Phone: Start: 11-10-2018 End: 11-26-2018 Discharged Recurring Elizabeth Benjamin [facility] [place] Start: 05-24-2018 End: 05-28-2018 Evaluation and management of inpatient Joni. Cassidy -4 [place] [facility] Procedures Date Procedure Procedure Detail Performing Clinician Start: 03-13-2023 ALL CBC WITH AUTO DIFF Generic External Data Provider Start: 03-05-2023 MR prostate wo/w con DO Elizabeth Jonathan Benjamin Work Phone: Start: 04-02-2020 Lipid 1996 panel - S jabari or Plasma Adolfo Gomez MD Work Phone: Start: 02-10-2020 Colonoscopy Kely Steel Start: 01-27-2020 Colonoscopy Generic Pr ovider Start: 02-09-2019 Total colonoscopy Anibal Benjamin Work Phone: Start: 02-09-2018 Right colectomy Kely Ines yanezmandy Start: 02-10-2016 Placement of stent i n cardiac conduit Kely Steel Start: 02-10-2004 Colonoscopy Kely Steel Operative procedure on foot Mary Pattersonmaria g Work Phone: Percutaneous translu go coronary angioplasty Mary Berry Carlottapoppy Work Phone: Procedure on abdomen Mary Benjamin Work Phone: Plan of Treatment Date Care Activity Detail Author Start: 01-26-2030 Screening for malignant neoplasm of colon [facility] Start: 07-08-2023 End: 07-08-2023 Patient encounter procedure 07/08/2023 10:00 AM EDT Office Visit [facility] [address] [address] Adolfo Gomez MD [address] [facility] [place] [address] [facility] Start: 04-23-2023 Medicare Annual Wellness (AWV) Medicare Annual Wellness (AWV) [facility] Start: 12-24-2022 FUV, Provider: Adolfo Gomez, Status: Pen, Time: 9:10 AM FUV, Provider: Adolfo Gomez, Status: Pen, Time: 9:10 AM [facility] 250 DO Work Phone: Start: 10-10-2022 Influenza vaccination Influenza Vaccine (#1) [facility] Start: 06-16-2022 FUV, Provider: Adolfo Gomez, Status: Pen, Time: 2:20 PM FUV, Provider: Adolfo Gomez, Status: Pen, Time: 2:20 PM -[facility] [employer] [address] [place] Work Phone: Start: 05-15-2022 FUV, Provider: Adolfo Gomez, Status: Pen, Time: 9:50 AM FUV, Provider: Adolfo Gomez, Status: Pen, Time: 9:50 AM [facility] [employer] 250 DO Work Phone: Start: 01-23-2022 COVID-19 Vaccine (4 - Pfizer series) COVID-19 Vaccine (4 - Pfizer series) [facility] Start: 07-02-2021 FUV, Provider: Adolfo Gomez, Status: Pen, Time: 2:20 PM FUV, Provider: Adolfo Gomez, Status: Pen, Time: 2:20 PM -[facility] [employer] [address] [place] Work Phone: Start: 04-02-2021 Lipid panel Lipid Panel [facility] Start: 03-08-2021 Screening for malignant neoplasm of colon FIT-DNA [facility] Start: 12-25-2020 FUV, Provider: Adolfo Gomez, Status: Pen, Time: 1:45 PM FUV, Provider: Adolfo Gomez, Status: Pen, Time: 1:45 [facility] Work Phone: Start: 04-02-2018 Pneumococcal Vaccine: 65+ Years (2 - PPSV23 or PCV20) Pneumococcal Vaccine: 65+ Years (2 - PPSV23 or PCV20) [facility] Start: 2002 Zoster Vaccines (1 of 2) Zoster Vaccines (1 of 2) [facility] Start: 1974 DTaP/Tdap/Td Vaccines (1 - Tdap) DTaP/Tdap/Td Vaccines (1 - Tdap) [facility] Start: 05-09-1971 Urine screening for protein Diabetes: Urine Protein Screening [facility] Start: 1970 Hepatitis C screening Hepatitis C Screening [facility] Start: 1962 Diabetic foot examination Diabetes: Foot Exam [facility] Start: 1962 Glaucoma screening Diabetes: Retinopathy Screening [facility] Start: 1952 Hemoglobin A1c measurement Diabetes: Hemoglobin A1C [facility] Start: 1950 Medicare Annual Wellness Visit Medicare Annual Wellness Visit (AWV) [facility] Start: 1950 Screening for malignant neoplasm of colon [facility] Immunizations Immunization Date Immunization Notes Care Provider Fa yomaira 11-28-2021 Fluzone High-Dose Quadrivalent 0.7 ML Intramuscular Suspension Prefilled Syringe Mary Benjamin Work Phone: [place] [address] DO Work Phone: 11-28-2021 influenza, seasonal, injectable Mary Benjamin Work Phone: [facility] 250 DO Work Phone: Comment on above: Series: 11-28-2021 Pfizer COVID-19 Vac Bivalent 30 MCG/0.3ML Intramuscular Suspension Mary Benjamin Work Phone: [facility] 11-28-2021 influenza virus vaccine, unspecified formulation Adolfo Gomez MD Work Phone: [facility] 12-10-2020 Fluzone High-Dose Quadrivalent 0.7 ML Intramuscular Suspension Prefilled Syringe Mary Benjamin Work Phone: [facility] [address] [place] Work Phone: 12-10-2020 influenza virus vaccine, unspecified formulation Kely Steel [facility] 12-10-2020 Pfizer-BioNTech COVID-19 Vacc 30 MCG/0.3ML Intramuscular Suspension Mary Benjamin Work Phone: [facility] [address] [place] Work Phone: 05-03-2020 Pfizer-BioNTech COVID-19 Vacc 30 MCG/0.3ML Intramuscular Suspension Mary Benjamin Work Phone: [facility] [address] [place] Work Phone: 04-12-2020 Pfizer-BioNTech COVID-19 Vacc 30 MCG/0.3ML Intramuscular Suspension Mary Benjamin Work Phone: [place] [address] [place] Work Phone: 12-11-2019 influenza virus vaccine, unspecified formulation Kely Steel [facility] 12-11-2019 influenza, seasonal, injectable Mary Benjamin Work Phone: [place] [address] [place] Work Phone: 11-28-2019 Fluzone High-Dose Quadrivalent 0.7 ML Intramuscular Suspension Prefilled Syringe Mary Benjamin Work Phone: [place] [address] [place] Work Phone: 11-28-2019 influenza virus vaccine, unspecified formulation Kely Steel [facility] 11-16-2018 influenza, injectabl e, madin olman canine kidney, preservative free Mary Jamal Carlottapoppy Work Phone: [place] [address] [place] Work Phone: 11-09-2018 influenza virus vaccine, unspecified formulation Mary Laguerredemariomaria g Work Phone: [place] [address] [place] Work Phone: 02-05-2018 influenza virus vaccine, unspecified formulation Kely Steel [facility] 02-05-2018 influenza, injectabl e, quadrivalent, contains preservative Mary Benjamin Work Phone: [facility] [address] [place] Work Phone: 02-05-2018 influenza, seasonal, injectable Adolfo Gomez MD Work Phone: [facility] Work Phone: 02-05-2018 pneumococcal conjuga te vaccine, 13 valent Mary Benjamin Work Phone: [facility] 11-09-2017 influenza virus vaccine, unspecified formulation Mary Benjamin Work Phone: [place] [address] DO Work Phone: 11-09-2017 influenza, seasonal, injectable Adolfo Gomez MD Work Phone: [facility] Work Phone: 10-10-2017 pneumococcal conjuga te vaccine, 13 valent Mary Benjamin Work Phone: [place] [address] DO Work Phone: 11-25-2015 influenza virus vaccine, unspecified formulation Mary Benjamin Work Phone: [place] [address] [place] Work Phone: 11-25-2015 influenza, seasonal, injectable Adolfo Gomez MD Work Phone: [facility] Work Phone: Payers Date Payer Category Payer Medicare [id number] 2021 Private Health Insurance [id number] 2021 Self-pay [id number] 1950 [facility] [id number] [id number]. [id number] 1950 Unknown [id number] 2.16. [id number] 1950 Unknown [id number] 1952 Unknown [id number] 2.16.8 [id number] 1950 Unknown [id number] [id number] Medicare Medicare [id number] Unknown [id number] Unknown Unknown [id number] Unknown [id number] Unknown [id number] [id number] Unknown [id number] Social History Date Type Detail Facility Start: 11-10-2018 End: 07-15-2022 Tobacco smoking status IDIS Ex-smoker (finding) [facility] Start: 1950 Sex Assigned At Male F [facility] Start: 07-15-2022 End: 12-24-2022 No illicit drug use No illicit drug use [place] [id number] [place] Work Phone: Comment on above: quit 2004, 2 ppd; 2-4 cups coffee morn ing, tea/pop once in awhile; Start: 07-15-2022 End: 12-24-2022 Sex Assigned At [facility] Start: 08-17-2020 End: 12-24-2022 Tobacco smoking status IDIS Never smoked tobacco (finding) [facility] Start: 12-24-2022 Tobacco use and exposure Smokeless tobacco non-user [facility] Work Phone: Start: 12-24-2022 Alcohol intake Lifetime non-d shirley (finding) [facility] Work Phone: Start: 1950 Sex Assigned At Not on file [facility] Work Phone: Start: 12-14-2022 End: 12-24-2022 Exposure to SARS-CoV-2 (event) Not sure [facility] Tobacco quit 2001 Tobacc o Use:. [facility] Tobacco smoking status No Smokin g Status Entered [facility] History of tobacco use Current smoker [facility] History of tobacco use Cigarette Smoker [facility] Start: 07-15-2022 Alcohol intake Current drinke r of alcohol (finding) [facility] Medical Equipment Procedure Code Equipment Code Equipment Origin al Text Equipment Identifier Dates Catheterization, heart, left FDA Start: 11-07-2016 Catheterization, heart, left CL STENT XIENCE ALP 2.5 X 18 FDA Start: 11-07-2016 Catheterization, heart, left CL STENT XIENCE ALP 2.5 X 18 FDA Start: 11-07-2016 Catheterization, heart, left CL STENT XIENCE ALP 2.5 X 18 FDA Start: 11-07-2016 Catheterization, heart, left CL STENT XIENCE ALP 2.5 X 18 FDA Start: 11-07-2016 Goals Date Patient Goal Desired Activity /State Functional Status Date Assessment Result Facility 01-16-2023 Functional Status N/A [facility] Clinical Notes 01-01-2021 to 02-25-2023 Note Date & Type Note Facility 02-25-2023 Evaluation note Encounter Date Diagnosis Assessment Notes Feb, Obstructive sleep apnea (adult) (pediatric) (ICD-10 - G47.33) He is using treatment, and does benefit. I suspect he is increased daytime sleepiness comes from not having enough hours of total use, and particularly from substantial leak leading to breakthrough events. I outlined his download in detail and explained its implications. I will change pressure settings to maximum 15 as he can feel things are too high sometimes. I advised mask refit, and emphasized using the machine every night, all night. 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 Should he continue to have nocturnal hypoxia or breakthrough events despite using auto CPAP effectively may need to consider titration [facility] [employer] Other 12-08-2023 NoteChief Complaint HPI Staff New Pt. Referral per Mary Benjamin DO due to elevated PSA. BUN 18, Creatinine 0.75 done 12/17/22 PSA 4.2 & 17% done 05/20/22 2.69 done 02/27/21 Pt is deaf his is here to interpret for him IPSS 15 LISSET Father had prostate cancer She is having the doctor fax over his med list Dysuria: denies Incomplete bladder emptying: denies Hematuria: denies visible blood Frequency: every 1-2 hours Urgency: denies Nocturia: 2-3 x nightly Stream: weaker stream, yes hesitation Leaking: denies Post void dripping: sometimes Wearing pads/ Depends: denies Urge incontinence: denies Stress incontinence: denies Incontinence without Sensory Awareness: denies Abdominal pain: denies Flank pain: denies Sexual complaints: denies History of Present Illness Tests reviewed: reviewed UA and External Records including various labs and notes I have reviewed the previous health record information and history for this patient from External Provider. I have reviewed and verified the staff HPI to be accurate for this encounter. There have been no associated fever, chills, flank pain, or blood in the urine. Denies any urinary infections since last encounter. Review of Systems PHQ Score Initial Depression Screen Score: 0 SCORE Initial Depression Screen Score: 0 SCORE ROS - Provider Constitutional: denies weight loss, denies hot flashes. Eyes: denies eye problems. Gastrointestinal: denies nausea, denies vomiting. Cardiovascular: denies chest pain or angina. Integumentary: no dryness Musculoskeletal: denies musculoskeletal symptoms. ENMT: denies otolaryngeal symptoms. Respiratory: no shortness of breath. Heme/Lymph: denies easy bleeding tendency, denies easy bruising tendency. Psychiatric: no confusion, no anxiety. Genitourinary: See HPI. Physical Exam Vitals & Measurements T: 36.1 ?C(Temporal Artery) BP: 127/89 HT: 73 in HT: 185 cm WT: 69.5 kg WT: 152.9 lb BMI: 34.33 General Appearance: alert, no distress, well nourished, well developed male. Head: normocephalic . Eyes: normal orbit and globe. ENMT: normal examination of external ears. Deaf Chest: symmetric chest rise, respirations non labored. Cardiovascular: regular rate and rhythm. Abdomen: soft, non distended, no tenderness Genitourinary: Flank Pain: none. Bladder: nonpalpable. Prostate: normal prostate, no hard nodule observed, moderately enlarged, non tender Skin: warm, dry, no bruising. Psychiatric: cooperative, affect appropriate for age, normal judgement, euthymic mood. Assessment/Plan Mynor is a 72 yo male new patient referred by Mary Benjamin DO due to elevated PSA. BUN 18, Creatinine 0.75 done 12/17/22. Pt is deaf his is here to interpret for him. Patient and prefer to have translate Pt had a heart attack in 2016 or 2017 s/p stent. Not on AC. 1. Elevated PSA (R97.20: Elevated prostate specific antigen [PSA]) PSA 02/27/21 - 2.69 05/20/22 - 4.20 & 17% Father from metastatic prostate cancer shortly after diagnosis in his mid 80s. Discussed elevated risk of prostate cancer with patient. VAUGHN benign today He has an elevated PSA, which could indicate prostate cancer, prostate infection, prostate inflammation without infection, prostate manipulation, or benign prostate enlargement (BPH). The importance of the rate of PSA rise has also been discussed. The options for management have been discussed, including prostate biopsy versus close monitoring of the PSA over time. Advised pt that we will get a repeat level done and MRI of his prostate if elevation confirmed. Advised pt that if the MRI comes back abnormal, we can discuss doing a bx. Advised pt that we would need to have cardiac clearance if he would be put under anesthesia. Pt states that he would be okay with being awake for the bx. We discussed risks of MRI fusion prostate biopsy approaches including transrectal and transperineal. Risks of the procedure were discussed to include but not be limited to bleeding, pain, infection (higher, including sepsis with transrectal approach), difficulties with urination, injury to the urethra, prostate or bladder or surrounding tissues, injury from positioning on the table, swelling and bruising of the skin, and need for further procedures. -Will order PSA F&T. -will order MRI prostate if PSA is elevated. Will need to confirm heart stent MRI compatible. If lesion noted, will call to schedule MRI fusion transperineal prostate biopsy under local. If neg, pt to decide to proceed with systematic bx given risk of missed cancer in 12-16% MRI and his family hx 2. BPH (benign prostatic hyperplasia) (N40.0: Benign prostatic hyperplasia without lower urinary tract symptoms) IPSS 15 - weak stream, nocturia UA today is negative for blood and infection. VAUGHN:moderately enlarged, no nodules PE:rash on BL mid gluteal aspects Discussed bladder pathophysiology and potential management options for urin (more content not included)...[facility]:Result Comment: Electronically Signed By: Damián VILLAGRAN, Kely Calvin.br\Date and Time Signed: 01/16/23 17:[id number] Evaluation + Plan note Diagnostic Tests Pending * PSA Free & Total 01/16/23 [facility] [place] [id number] Hospital Discharge instructions Patient Education 01/16/2023 09:37:36 Prostate Cancer Screening Prostate Cancer Screening Prostate cancer screening is testing that is done to check for the presence of prostate cancer in men. The prostate gland is a walnut-sized gland that is located below the bladder and in front of therectum in males. The function of the prostate is to add fluid to semen during ejaculation. Prostatecancer is one of the most common types of cancer in men. Who should have prostate cancer screening? Screening recommendations vary based on age and other risk factors, as well as between the professional organizations who make the recommendations. In general, screening is recommended if: You are age 50 to 70 and have an average risk for prostate cancer. You should talk with your healthcare provider about your need for screening and how often screening should be done. Because most prostate cancers are slow growing and will not cause , screening in this age group is generally reserved for men who have a 10- to 15-year life expectancy. You are younger than age 50, and you have these risk factors: ?Having a father, brother, or uncle who has been diagnosed with prostate cancer. The risk is higherif your family member's cancer occurred at an early age or if you have multiple family members withprostate cancer at an early age. ?Being a male who is Black or is of [place] or sub-Saharan descent. In general, screening is not recommended if: You are younger than age 40. You are between the ages of 40 and 49 and you have no risk factors. You are 70 years of age or older. At this age, the risks that screening can cause are greater than the benefits that it may provide. If you are at high risk for prostate cancer, your health care provider may recommend that you have screenings more often or that you start screening at a younger age. How is screening for prostate cancer done? The recommended prostate cancer screening test is a blood test called the prostate-specific antigen(PSA) test. PSA is a protein that is made in the prostate. As you age, your prostate naturally produces more PSA. Abnormally high PSA levels may be caused by: Prostate cancer. An enlarged prostate that is not caused by cancer (benign prostatic hyperplasia, or BPH). This condition is very common in older men. A prostate gland infection (prostatitis) or urinary tract infection. Certain medicines such as male hormones (like testosterone) or other medicines that raise testosterone levels. A rectal exam may be done as part of prostate cancer screening to help provide information about the size of your prostate gland. When a rectal exam is performed, it should be done after the PSA level is drawn to avoid any effect on the results. Depending on the PSA results, you may need more tests, such as: A physical exam to check the size of your prostate gland, if not done as part of screening. Blood and imaging tests. A procedure to remove tissue samples from your prostate gland for testing (biopsy). This is the only way to know for certain if you have prostate cancer. What are the benefits of prostate cancer screening? Screening can help to identify cancer at an early stage, before symptoms start and when the cancer can be treated more easily. There is a small chance that screening may lower your risk of dying from prostate cancer. The chance is small because prostate cancer is a slow-growing cancer, and most men with prostate cancer from a different cause. What are the risks of prostate cancer screening? The main risk of prostate cancer screening is diagnosing and treating prostate cancer that would never have caused any symptoms or problems. This is called overdiagnosisand overtreatment. PSA screening cannot tell you if your PSA is high due to cancer or a different cause. A prostate biopsy is the only procedure to diagnose prostate cancer. Even the results of a biopsy may not tell you if your cancer needs to be treated. Slow-growing prostate cancer may not need any treatment other than monitoring, so diagnosing and treating it may cause unnecessary stress or other side effects. Questions to ask your health care provider When should I start prostate cancer screening? What is my risk for prostate cancer? How often do I need screening? What type of screening tests do I need? How do I get my test results? What do my results mean? Do I need treatment? Where to find more information The [place] [employer]: www.cancer.org [place] [employer]: www.auanet.org Contact a health care provider if: You have difficulty urinating. You have pain when you urinate or ejaculate. You have blood in your urine or semen. You have pain in your back or in the area of your prostate. Summary Prostate cancer is a common type of cancer in men. The prostate gland is located below the bladder and in front of the rectum. This gland adds fluid to semen during ejaculation. Prostate cancer screening may identify cancer at an early stage, when the cancer can be treated more easily and is less likely to have spread to other areas of the body. The prostate-specific antigen (PSA) test is the recommended screening test for prostate cancer, butit has associated risks. Discuss the risks and benefits of prostate cancer screening with your health care provider. If you are age 70 or older, the risks that screening can cause are greater than the benefits that it may provide. This information is not intended to replace advice given to you by your health care provider. Make sure you discuss any questions you have with your health care provider. Document Revised: 07/22/2021 Document Reviewed: 07/22/2021 [employer] Patient Education 2022 [employer]. Follow Up Care 10/16/2022 12:58:36 With:Damián VILLAGRAN, ABBY Shelley, URO Address: When: Unknown Comments:Pending PSA F&T [facility] [place] 11-15-2023 History of Present illness Narrative* Adolfo Gomez MD - 12/24/2022 9:10 AM EST Subjective Mynor Dorsey is a 72 y.o. male Chief Complaint Follow-up HPI Patient is in the office with his for follow-up for the problems noted below with no events noted since he was last seen in the office 6 months ago. He is totally deaf but his communicate with him with sign language. He had recent lab data which I reviewed with him and his and his numbers look great. His diabetes is managed by his PCP and we do not have any recent A1c. He is also scheduled this spring for colonoscopy by general surgery for routine follow-up. Examination was only remarkable for obesity. Assessment/recommendation: 4-fvfgnr-cethkk coronary artery disease status post angioplasty of the anterior descending artery in October 2017. Patient was advised to continue aspirin indefinitely. 2-hyperlipidemia on Zetia, and Repatha. No side effects. Lipid profile Is on target 3-sleep apnea, currently on CPAP machine 4- class I obesity, advice the patient Has lost significant weight since her last visit but lifestyle changes 5-large abdominal hernia from previous surgery that is chronic and asymptomatic 6-patient is totally deaf and communication with him is through his using sign language Review of Systems Constitutional: Positive for malaise/fatigue. All other systems reviewed and are negative. Visit Vitals BP 118/70 (BP Location: Right arm, Patient Position: Sitting) Pulse 68 Ht 1.829 m (6') Wt 116 kg (256 lb) BMI 34.72 kg/m Smoking Status Never BSA 2.43 m Objective Physical Exam Constitutional: Appearance: Normal appearance. He is normal weight. HENT: Nose: Nose normal. Neck: Vascular: No carotid bruit. Cardiovascular: Rate and Rhythm: Normal rate. Pulses: Normal pulses. Heart sounds: Normal heart sounds. Pulmonary: Effort: Pulmonary effort is normal. Abdominal: General: Bowel sounds are normal. Palpations: Abdomen is soft. Genitourinary: Rectum: Normal. Musculoskeletal: General: Normal range of motion. Cervical back: Normal range of motion. Right lower leg: No edema. Left lower leg: No edema. Skin: General: Skin is warm and dry. Neurological: General: No focal deficit present. Mental Status: He is alert. Psychiatric: Mood and Affect: Mood normal. Behavior: Behavior normal. Thought Content: Thought content normal. Judgment: Judgment normal. Current Medications Current Outpatient Medications: acetaminophen (Tylenol) 500 mg capsule, Take 1 capsule (500 mg) by mouth every 4 hours if needed., Disp: , Rfl: aspirin 81 mg EC tablet, Take 1 tablet (81 mg) by mouth once daily., Disp: , Rfl: evolocumab (Repatha SureClick) 140 mg/mL injection, Inject 1 mL (140 mg) under the skin every 14 (fourteen) days., Disp: , Rfl: ezetimibe (Zetia) 10 mg tablet, Take 1 tablet (10 mg) by mouth once daily., Disp: , Rfl: hydroCHLOROthiazide (HYDRODiuril) 25 mg tablet, Take 1 tablet (25 mg) by mouth once daily., Disp: ,Rfl: lansoprazole (Prevacid) [address] capsule, Take 1 capsule (30 mg) by mouth once daily., Disp: , Rfl: meclizine (Antivert) 25 mg tablet, Take 1 tablet (25 mg) by mouth 3 times a day as needed for dizziness., Disp: , Rfl: metFORMIN (Glucophage) 500 mg tablet, Take 1 tablet (500 mg) by mouth once daily., Disp: , Rfl: Assessment/Plan 1. Atherosclerosis of andreafski coronary artery of andreafski heart without angina pectoris Follow Up In Cardiology 2. Mixed hyperlipidemia 3. S/P coronary angioplasty 4. Obstructive sleep apnea syndrome 5. Class 1 obesity without serious comorbidity with body mass index (BMI) of 34.0 to 34.9 in adult,unspecified obesity type 6. Type 2 diabetes mellitus without complication, without long-term current use of insulin ([facility]) documented in this [facility] Work Phone: 1(281) 133-910911-15-2023 Instructions* Patient Instructions* Monica Lyon LPN - 12/24/2022 9:10 AM EST Please bring all medicines, vitamins, and herbal supplements with you when you come to the office. Prescriptions will not be filled unless you are compliant with your follow up appointments or have a follow up appointment scheduled as per instruction of your physician. Refills should be requested at the time of your visit. Patient is okay to hold Aspirin prior to colonoscopy when scheduled. documented in this [facility] Work Phone: 1([phone]) 609-230011-22-2022 Evaluation note* Encounter Date Diagnosis Assessment Notes Treatment Notes Treatment Clinical Notes Dec, Obstructive sleep apnea (adult) (pediatric) (ICD-10 - G47.33) Fortunately he is using and benefiting from treatment. I reviewed his download and he expresses good understanding. Has inched back up as leakage has worsened as well. Extensively discussed mask fit, and relationship between leakage and apparent residual AHI. Work on fit, consider different size or style of mask if it cannot be achieved Dec, Idiopathic sleep related nonobstructive alveolar hypoventilation (ICD-10 - G47.34) This emphasizes importance of using the machine every night, all night. Fortunately he is doing well in this regard. [employer] Other 11-23-2021 Evaluation note* Encounter Date Diagnosis Assessment Notes Treatment Notes Treatment Clinical Notes Dec, Obstructive sleep apnea (adult) (pediatric) (ICD-10 - G47.33) Fortunately he is using and benefiting from treatment. I reviewed his download and he expresses good understanding. AHI dramatically improved since getting better seal. Does still have some leak, and does have some breakthrough events. We will adjust the minimum from 5-7 and will decrease maximum from 17-15, based on download. However I anticipate things will go well based on his current improvement. Continue Rx, call if problems Dec, Idiopathic sleep related nonobstructive alveolar hypoventilation (ICD-10 - G47.34) This emphasizes importance of using the machine every night, all night. Fortunately he is doing well in this regard. [employer] Other Evaluation noteNo assessment information available [facility] Work Phone: Evaluation note* Diagnosis Atherosclerosis of andreafski coronary artery of andreafski heart without angina pectoris- Primary Mixed hyperlipidemia S/P coronary angioplasty Postsurgical percutaneous transluminal coronary angioplasty status Obstructive sleep apnea syndrome Obstructive sleep apnea (adult) (pediatric) Class 1 obesity without serious comorbidity with body mass index (BMI) of 34.0 to 34.9 in adult, unspecified obesity type Type 2 diabetes mellitus without complication, without long-term current use of insulin ([facility]) documented in this encounter [facility] Work Phone: History general Narrative - Reported* Type Description Date Medical History High cholesterol Medical History hearing impaired Medical History DE Medical History MARIO Surgical History right foot surgery 1994 Hospitalization History See above [employer] Other Hospital course Narrative No data available for this section [facility] [employer] Progress note No data available for this section [facility] [employer] Reason for referral (narrative)* Consultation (Routine) - Authorized Specialty Diagnoses / Procedures Referred By Contac t Referred To Contact Cardiology Diagnoses Atherosclerosis of andreafski coronary artery of andreafski heart without angina pectoris Procedures Follow Up In Cardiology Adolfo Gomez MD [address] [place] [address] Adolfo Gomez MD [address] [place] [address] 2, [address] [address] Referral ID Status Reason Start Date Expiration Date V isits Requested Visits Authorized [id number] Authorized 12/24/2022 12/24/2023 1 1 [facility] Work Phone: Advance Directives No Advanced Directives Records Found Advance Directive Response Recorded Date/ Time Advance Directives No October 9:04pm Advance Directive Response Recorded Date/ Time Advance Directives No October 8:04pm Chief Complaint and Reason for Visit Chief Complaint Open Wound Reason for Visit Obesity Surgical wound, non healing Chief Complaint E78.5 I25.10 R74.8 Obstructive sleep apnea Chief Complaint E78.5 I125.10 Chief Complaint E78.5 I125.10 R97.20 Chief Complaint E78.5 I125.10 R97.20 mario, 1 year r97.20 Assessments Diagnosis Onset Date Resolution Status Obesity chronic Surgical wound, non healing resolved Family History No Family History Records Found Relationship Condition Age at Onset Recorded Date/T sary Not Specified Deafness Unknown sister Diabetes mellitus Unknown Malignant neoplasm of kidney Unknown Malignant neoplasm of colon Unknown Not Specified Malignant neoplasm of lung Unknown father Malignant neoplasm of prostate Unknown brother Heart problem Unknown Unknown Family Member Name Dates Details Family history of malignant neoplasm of colon: Sister(V16.0, Z80.0) Status:Active Family history of diabetes m ellitus: Mother(V18.0, Z83.3) Status:Active Family history of lung cance r: Mother(V16.1, Z80.1) Status:Active Family history of malignant neoplasm of prostate: Father(V16.42, Z80.42) Status:Active Heart problem: Brother Status:Active Unknown Family Member Name Dates Details Family history of malignant neoplasm of colon: Sister(V16.0, Z80.0) Status:Active Family history of diabetes m ellitus: Mother(V18.0, Z83.3) Status:Active Family history of lung cance r: Mother(V16.1, Z80.1) Status:Active Family history of malignant neoplasm of prostate: Father(V16.42, Z80.42) Status:Active Heart problem: Brother Status:Active Unknown Family Member Name Dates Details Family history of malignant neoplasm of colon: Sister(V16.0, Z80.0) Status:Active Family history of diabetes m ellitus: Mother(V18.0, Z83.3) Status:Active Family history of lung cance r: Mother(V16.1, Z80.1) Status:Active Family history of malignant neoplasm of prostate: Father(V16.42, Z80.42) Status:Active Heart problem: Brother Status:Active Unknown Family Member Name Dates Details Family history of malignant neoplasm of colon: Sister(V16.0, Z80.0) Status:Active Family history of diabetes m ellitus: Mother(V18.0, Z83.3) Status:Active Family history of lung cance r: Mother(V16.1, Z80.1) Status:Active Family history of malignant neoplasm of prostate: Father(V16.42, Z80.42) Status:Active Heart problem: Brother Status:Active Unknown Family Member Name Dates Details Family history of malignant neoplasm of colon: Sister(V16.0, Z80.0) Status:Active Family history of diabetes m ellitus: Mother(V18.0, Z83.3) Status:Active Family history of lung cance r: Mother(V16.1, Z80.1) Status:Active Family history of malignant neoplasm of prostate: Father(V16.42, Z80.42) Status:Active Heart problem: Brother Status:Active Unknown Family Member Name Dates Details Family history of malignant neoplasm of colon: Sister(V16.0, Z80.0) Status:Active Family history of diabetes m ellitus: Mother(V18.0, Z83.3) Status:Active Family history of lung cance r: Mother(V16.1, Z80.1) Status:Active Family history of malignant neoplasm of prostate: Father(V16.42, Z80.42) Status:Active Heart problem: Brother Status:Active Unknown Family Member Name Dates Details Family history of malignant neoplasm of colon: Sister(V16.0, Z80.0) Status:Active Family history of diabetes m ellitus: Mother(V18.0, Z83.3) Status:Active Family history of lung cance r: Mother(V16.1, Z80.1) Status:Active Family history of malignant neoplasm of prostate: Father(V16.42, Z80.42) Status:Active Heart problem: Brother Status:Active Chief Complaint * MYNOR DORSEY is being seen for an annual follow-up of. * Patient is in the office for follow-up for the problems noted below accompanied by his . He is totally deaf and his does the communication with him. The patient has not had any events since he was last seen in the office back in March 2020 except for the fact that due to elevated transaminase his statin was put on hold unfortunately have not been resumed. He is only taking Zetia. He lost 7 pounds in the last several months and was diagnosed with obstructive sleep apnea for which sheis presently utilizing CPAP machine on regular basis. He is indicated no recent angina pectoris, nopalpitations no orthopnea PND and has chronic lower extremity edema unchanged from previously. * Assessment/recommendation: * 1 single-vessel coronary artery disease status post angioplasty of the anterior descending artery in October 2017. Patient was advised to continue aspirin indefinitely. * 2 hyperlipidemia on Zetia, due to elevated transaminase statin were discontinued, the patient will have lipid profile is ordered and based on the result resume statin therapy., Target LDL 70 or less * 3 sleep apnea, currently on CPAP machine * 4 morbid obesity, advice the patient through his to work on his weight with reduce calorie intake and increase in exercise capacity * 5 bilateral asymptomatic lower extremity edema with normal left ventricular ejection fraction, likely related to his morbid obesity, patient uses compression stockings daily. * 6 patient is totally deaf and communication with him is through his using sign language * MYNOR DORSEY is being seen for a 6 month follow-up of. * Patient is in the office for follow-up accompanied by his . 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 His indicated that he has not had any trouble since he was last seen in the office several months ago. His weight has come down nicely by lifestyle changes. There has been no angina. He had recent blood work through his PCP which we requested. His last lipid profile from last fall was on target on Repatha and ezetimibe. He is intolerant to statin due to elevated liver enzymes. * Assessment/recommendation: * 1 single-vessel coronary artery disease status post angioplasty of the anterior descending artery in October 2017. Patient was advised to continue aspirin indefinitely. * 2 hyperlipidemia on Zetia, and Repatha. No side effects. Lipid profile Is on target * 3 sleep apnea, currently on CPAP machine * 4 obesity, advice the patient Has lost significant weight since her last visit but lifestyle changes * 5 elevated liver enzyme while on statin therapy. Recent lab data showed minimal elevation of transaminase * 6 patient is totally deaf and communication with him is through his using sign language Summary Purpose Additional Source Comments (unrecognized sect ion and content) No Status Records FoundNo Status Records FoundNo Status Records FoundNo Status Records FoundNo Status Records FoundNo Status Records Found INFORMATION SOURCE (unrecogn ized section and content) DATE CREATED AUTHOR 02/28/2021 [facility] dical Specialist DATE CREATED AUTHOR AUTHOR'S ORGANIZ ATION 06/18/2022 [facility] DATE CREATED AUTHOR AUTHOR'S ORGANIZ ATION 06/18/2022 [employer] DATE CREATED AUTHOR AUTHOR'S ORGANIZ ATION 12/26/2022 [facility] DATE CREATED AUTHOR AUTHOR'S ORGANIZ ATION 03/12/2023 [facility] DATE CREATED AUTHOR AUTHOR'S ORGANIZ ATION 03/17/2023 José Antonio Scott [facility] Care Teams (unrecognized sec tion and content) Team Status: Active Member Role Status Dates Elizabeth Benjamin DO Primary Care Provider Active Team Status: Inactive Member Role Status Dates Elizabeth Benjamin DO Primary Care Provider Active Adolfo Gomez MD Attending Provider Active Team Status: Inactive Member Role Status Dates Elizabeht Benjamin DO Primary Care Provider Active Samir Dunn MD Attending Provider Active Anode Machine Operator Relationship Specialty Start Date End Date Mary Benjamin DO [address] [place] [address] PCP - General 12/25/20 Team Status: Inactive Member Role Status Dates Elizabeth Benjamin DO Primary Care Provider Active Kely Steel MD Attending Provider Active Team Status: Inactive Member Role Status Dates Elizabeth Benjamin DO Primary Care Provider Active Start: December 17, 2022 End: December 17, 2022 Adolfo Gomez MD Attending Provider Active St art: December 17, 2022 End: December 17, 2022 Team Status: Inactive Member Role Status Dates Elizabeth Benjamin DO Primary Care Provider Active Start: January 21, 2023 End: January 21, 2023 Kely Steel MD Attending Provider Active Start : January 21, 2023 End: January 21, 2023 Team Status: Inactive Member Role Status Dates Elizabeth Benjamin DO Primary Care Provider Active Start: February 25, 2023 End: February 25, 2023 Samir Dunn MD Attending Provider Active S tart: February 25, 2023 End: February 25, 2023 Team Status: Inactive Member Role Status Dates G. Jonathan Kaftan , DO Primary Care Provider Active Start: March 05, 2023 End: March 05, 2023 Kely Steel MD Attending Provider Active Start : March 05, 2023 End: March 05, 2023 Anode Machine Operator Relationship Specialty Start Date End Date Mary Benjamin DO Jamal [address] [place] [address] PCP - [employer] 02/09/21 Mary Benjamin DO [address] [place] [address] PCP - General Family Medicine 07/16/22 Goals (unrecognized section and content) Goals may be documented in a n alternate section Reason for Visit (unrecogniz ed section and content) Reason Comments Follow-up 6m FOR RECORDS PERTAINING TO PATIENTS WHO ARE OR HAVE BEEN ENROLLED IN A CHEMICAL DEPENDENCY/SUBSTANCEABUSE PROGRAM, SOME INFORMATION MAY BE OMITTED. This clinical summary was aggregated from multiple sources. Caution should be exercised in using it in the provision of clinical care. This summary normalizes information from multiple sources, and as a consequence, information in this document may materially change the coding, format and clinical context of patient data. In addition, data may be omitted in some cases. CLINICAL DECISIONS SHOULD BE BASED ON THE PRIMARY CLINICAL RECORDS. Thanx [facility]. provides no warranty or guarantee of the accuracy or completeness of information in this document.
[2023-03-18 12:42] LABS: Glucometer 104 mg/dL (74-106)
[2023-03-18] MEDS: LACTATED RINGER'S SOLUTION 1,000 ML 50 ML IV (12:56)
[2023-03-18] MEDS: CEFAZOLIN SODIUM/DEXTROSE,ISO 2 GM/50 ML PIGGYBACK IV (13:43)
[2023-03-18] MEDS: LIDOCAINE HCL 1% 100 MG/10 ML MDV INJ (14:23)
[2023-03-18] MEDS: BACITRACIN OINTMENT 28.4 GM TUBE 1 APPLIC TOPICAL (14:39)
--- NOTE | 2023-03-18 14:53 | P.URON_ITS ---
Urology Surgery Operative Note Operative Note Procedure Date: 03/18/23 Time Out Performed: yes Pre-op Diagnosis: 1. Elevated PSA 2. Abnormal MRI Post-op Diagnosis: same as pre-op Procedures performed: 1. MRI fusion prostate biopsy, transperineal approach 2. Ultrasound for needle prostate biopsy, transperineal approach 3. Transrectal ultrasound of prostate and seminal vesicles 4. Nerve block of prostate Anesthesia: General-ET (Dr. Dubois) Primary Surgeon: Kely Steel Complications: none Estimated blood loss (mL): 1 Findings: VAUGHN benign. Left posterior PZ hypoechoic lesion consistent with MRI findings. Volume 61 cc. SV wnl. Uneventful biopsy per below. Specimens: 1. Right posterior medial (2 cores) 2. Right posterior lateral (2 cores) 3. Right base (2 cores) 4. Right anterior lateral (2 cores) 5. Right anterior medial (2 cores) 6. Left anterior medial (2 cores) 7. Left anterior lateral (2 cores) 8. Left base (2 cores) 9. Left posterior lateral (2 cores) 10. Left posterior medial (2 cores) 11. JOHANNY 1- left peripheral zone, mid (4 cores) Indications for Procedures: 72 year old male with history of elevated PSA 4.2, 17% free on 05/20/22, PSA density 0.07. MP-MRI prostate 03/05/23 showed PIRADS 4 lesion at left peripheral zone, mid gland. Prostate volume 59 ml. VAUGHN benign. After discussion of risks/benefits of management options and biopsy approaches, he elected to proceed with MRI fusion transperineal prostate biopsy. Risks were discussed to include but not limited to bleeding, pain, infection, damage to surrounding structures, hematuria, difficulty urinating, ecchymosis, swelling, injury from positioning, and need for additional procedures. Detailed description of Procedure: After informed consent was obtained, the patient was brought to the operating suite and transferred onto the operating table in supine position. Sequential compression devices were placed on bilateral lower extremities. He received the appropriate dose of preoperative IV antibiotics (Cefazolin 2 g) and general anesthesia ETT was induced due to body habitus and risks. He was positioned in the dorsal lithotomy position with scrotum secured out of the perineum with tape, and the appropriate pressure points padded, prepped and draped in the usual fashion for this procedure. An operative timeout was performed confirming the patient's identity, procedure and safety checks. A digital rectal exam was performed noting mildly enlarged prostate, no firm nodules. The [employer] UroNav MRI fusion biopsy system was set up over the patient's pelvis for transperineal approach of prostate biopsy. A well lubricated biplane transrectal ultrasound probe was inserted into the rectum and the prostate was aligned. The prostate was evaluated in the axial and sagittal planes as above. The skin followed by periprostatic local anesthetic lidocaine 1% was delivered. The Precision Point device was placed on the ultrasound probe for transperineal approach. After rendering of real-time images with the preoperative MRI prostate, the UroNav fusion biopsy system was used to target the region of interest. Four core needle biopsies were obtained from the region of interest. Thereafter two biopsies were obtained in a systematic fashion from 10 regions of the prostate including the medial and lateral aspects of the anterior and posterior prostate, as well as base of the right and left lobes, respectively. The ultrasound probe was removed and the perineum was cleaned and dressed with antibiotic ointment, fluffs and scrotal support. The patient was awakened from anesthesia and sent to PACU in stable condition. Plan: Void prior to discharge home. Follow up in 1-2 weeks for pathology review. Other Provider present: No Post Operative care instructions: see discharge instructions
--- NOTE | 2023-03-18 15:00 | PC.NURSE ---
discontinued oxygen at this time
[2023-03-18] MEDS: LACTATED RINGER'S SOLUTION 1,000 ML 75 ML IV (15:03)
== END 2023-03-18 16:11 | disposition home or self-care (01) ==
PROVIDERS: Visit Provider Urology
PROC: (CPT 55700; principal; 2023-03-18 13:30)
DX: R97.20 Elevated prostate specific antigen [PSA] (principal); N42.32 Atypical small acinar proliferation of prostate; N40.1 Benign prostatic hyperplasia with lower urinary tract symptoms; I10 Essential (primary) hypertension; Z79.01 Long term (current) use of anticoagulants; I25.10 Atherosclerotic heart disease of native coronary artery without angina pectoris; R93.89 Abnormal findings on diagnostic imaging of other specified body structures; H91.90 Unspecified hearing loss, unspecified ear; R35.1 Nocturia; K21.9 Gastro-esophageal reflux disease without esophagitis; I25.2 Old myocardial infarction; M19.90 Unspecified osteoarthritis, unspecified site; E11.9 Type 2 diabetes mellitus without complications; E78.5 Hyperlipidemia, unspecified; Z90.49 Acquired absence of other specified parts of digestive tract; Z98.62 Peripheral vascular angioplasty status; Z87.891 Personal history of nicotine dependence; Z79.82 Long term (current) use of aspirin; Z80.42 Family history of malignant neoplasm of prostate; R35.0 Frequency of micturition; E66.9 Obesity, unspecified; Z68.34 Body mass index [BMI] 34.0-34.9, adult
CPT/HCPCS: 55700; 36415; 88305; J0131; J0330; J0690; J2405; J2704; J3010